=== PATIENT | male | born 1935 | race Caucasian/White ===

== ENCOUNTER 2016-04-05 08:23 | Emergency (ER) | payer MEDICARE, BC ==
[2016-04-05] MEDS ORDERED: IPRATROPIUM/ALBUTEROL (0.5MG/3MG) NEB INH ONE (08:43)
--- NOTE | 2016-04-05 08:46 | Emergency Department Record ---
History of Present Illness - General Chief Complaint: Cough Stated Complaint: COUGHING Time Seen by Provider: 04/05/16 08:43 Source: Patient Mode of Arrival: Ambulatory Limitations: No limitations - History of Present Illness Initial Comments: 81 yo male presents to ED with a CC of intermittent cough symptoms for the past several months intermittently. Patient denies fevers, chills, or weakness symptoms, but reports a persistent return of his cough symptoms following antibiotic treatment. MD Complaint: Cough Onset/Timin -: Month(s) Severity: Moderate Consistency: Intermittent Improves With: Other (antibiotics) Worsens With: Nothing Associated Symptoms: Cough Treatments Prior to Arrival: Antibiotics - Related Data Home Medications Medication Instructions Recorded Confirmed Last Taken Amlodipine Besylate [Norvasc] 10 mg PO DAILY 02/20/14 04/05/16 03/16/15 Omeprazole 20 mg PO DAILY 02/20/14 04/05/16 03/16/15 Potassium Chloride [Klor-Con M10] 10 meq PO DAILY 02/20/14 04/05/16 03/16/15 Quinapril/Hydrochlorothiazide 1 tab PO DAILY 02/20/14 04/05/16 03/16/15 [Quinapril-Hctz 20-12.5 mg Tab] Previous Rx's Medication Instructions Recorded Loperamide HCl [Immodium] 2 mg PO ASDIR PRN #30 capsule 03/17/15 Doxycycline Hyclate [Doxycycline] 100 mg PO BID #28 cap 04/05/16 Prednisone [Prednisone 20Mg] 20 mg PO BID #14 tab 04/05/16 Allergies Allergy/AdvReac Type Severity Reaction Status Date / Time No Known Drug Allergies Allergy Verified 03/16/15 13:58 Travel Screening - Travel/Exposure Within Last 30 Days Have you traveled within the last 30 days?: No Review of Systems Constitutional: Denies: Chills, Fever, Malaise, Night sweats Eyes: Denies: Eye discharge, Eye pain ENT: Denies: Congestion, Ear pain, Epistaxis Respiratory: Reports: Cough. Denies: Dyspnea, Wheezes Cardiovascular: Denies: Chest pain, Dyspnea on exertion Endocrine: Denies: Fatigue, Heat or cold intolerance Gastrointestinal: Denies: Abdominal pain, Nausea, Vomiting Genitourinary: Denies: Hematuria, Incontinence, Retention Musculoskeletal: Denies: Arthralgia, Back pain, Gout, Joint swelling Skin: Denies: Bruising, Change in color Neurological: Denies: Abnormal gait, Confusion, Headache, Seizure Psychiatric: Denies: Anxiety Hematological/Lymphatic: Denies: Anemia, Blood Clots Past Medical History - SOCIAL HISTORY Smoking Status: Former smoker Alcohol Use: None Drug Use: None - RESPIRATORY Hx Respiratory Disorders: Yes Hx Bronchitis: Yes (yrs ago) - CARDIOVASCULAR Hx Cardio Disorders: Yes Hx Hypertension: Yes Comment:: "bad back" - NEURO Hx Neuro Disorders: No - GI Hx GI Disorders: Yes Hx Reflux: Yes Hx Ulcer: Yes (1963) - Hx Genitourinary Disorders: Yes Hx Prostate Problems: Yes (cancer 2002) - ENDOCRINE Hx Endocrine Disorders: No Hx Diabetes: No Hx Thyroid Disease: No - MUSCULOSKELETAL Hx Musculoskeletal Disorders: Yes Hx Back Injury: Yes (fell in 2010) Comment:: lumbar deteriation- loss of 4" - PSYCH Hx Psych Problems: No - HEMATOLOGY/ONCOLOGY Hx Hematology/Oncology Disorders: Yes Hx Cancer: Yes Hx Chemotherapy: No Hx Radiation Therapy: Yes Hx Blood Transfusions: Yes Hx Blood Transfusion Reaction: No Comment:: radiation seeds 2002 Family Medical History Any Significant Family History?: Yes Hx Anxiety: Brother/Sister *Anxiety Comment: sister Hx Diabetes: Brother/Sister *Diabetes Comment: sister Physical Exam - General General Appearance: Alert, Oriented x3, Cooperative, No acute distress Limitations: No limitations - Head Head exam: Atraumatic, Normocephalic, Normal inspection Head exam detail: negative: Abrasion, Contusion, Almaguer's sign, General tenderness, Hematoma, Laceration - Eye Eye exam: Normal appearance. negative: Conjunctival injection, Periorbital swelling, Periorbital tenderness, Scleral icterus - ENT Ear exam: negative: Auricular hematoma, Auricular trauma Nasal Exam: negative: Active bleeding, Discharge, Dried blood, Foreign body Mouth exam: negative: Drooling, Laceration, Muffled voice, Tongue elevation - Neck Neck exam: Normal inspection. negative: Meningismus, Tenderness - Respiratory Respiratory exam: Normal lung sounds bilaterally. negative: Rales, Respiratory distress, Rhonchi, Stridor - Cardiovascular Cardiovascular Exam: Regular rate, Normal rhythm, Normal heart sounds - GI/Abdominal GI/Abdominal exam: Soft. negative: Rebound, Rigid, Tenderness - Rectal Rectal exam: Deferred - exam: Deferred - Extremities Extremities exam: Normal inspection. negative: Calf tenderness, Pedal edema, Tenderness - Back Back exam: Denies: CVA tenderness (R), CVA tenderness (L) - Neurological Neurological exam: Alert, Normal gait, Oriented X3 - Psychiatric Psychiatric exam: Normal affect, Normal mood - Skin Skin exam: Normal color. negative: Abrasion Type of lesion: negative: abrasion Course Vital Signs 04/05/16 08:25 Temperature 97.4 F L Pulse Rate 94 H Respiratory 20 Rate Blood Pressure 138/90 Pulse Ox 93 L - Reevaluation(s) Reevaluation #1: 04/05/16 09:29 CXR: Chronic changes, nothing acute. Patient was updated on his radiology results, reports that the duoneb did not significantly improved his symptoms. Patient appears stable for discharge on Doxycycline and prednisone for his symptoms and follow-up with Dr. Galarza in 5-7 days. Disposition Disposition: Discharge Clinical Impression: Bronchitis Disposition: Home, Self-Care Condition: (2) Stable Instructions: Acute Bronchitis (ED) Additional Instructions: Return to ED if your symptoms worsen or if you have any concerns. Follow-up with Dr. Galarza in 5-7 days as directed. Doxycycline and Prednisone as directed. Prescriptions: Doxycycline Hyclate [Doxycycline] 100 mg PO BID #28 cap Prednisone [Prednisone 20Mg] 20 mg PO BID #14 tab Forms: Patient Portal Access Time of Disposition: 09:32
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
== END 2016-04-05 10:07 | disposition home or self-care (01) ==
LOC: ER 08:23
DX: J20.9 Acute bronchitis, unspecified (principal); Z87.891 Personal history of nicotine dependence
CPT/HCPCS: 71020; 94640; 99283

== ENCOUNTER 2016-04-27 10:23 | Emergency (ER) | payer MEDICARE, BC ==
--- NOTE | 2016-04-27 10:44 | Emergency Department Record ---
History of Present Illness - General Chief complaint: Head Injury Stated complaint: HEAD INJURY 1 WEEK AGO/WEAKNESS Time Seen by Provider: 04/27/16 10:38 Source: Patient Mode of Arrival: Wheelchair Limitations: No limitations - History of Present Illness Initial comments: pt fell hitting head 10 days ago. since then he has not felt right. he has a headache which he never gets. he thought he was going to vomit his breakfast. he feels dizzy and off balance. he denies other injury. Complaint: Head injury, Fall Onset/Timin -: Days(s) Location: Frontal Loss of Consciousness: No Place: Home Radiation: None Consistency: Intermittent Provoking factors: None known Other Injuries: None Associated Symptoms: Weakness - Related Data Home Medications Medication Instructions Recorded Confirmed Last Taken Amlodipine Besylate [Norvasc] 10 mg PO DAILY 02/20/14 04/27/16 04/27/16 Omeprazole 20 mg PO DAILY 02/20/14 04/27/16 04/27/16 Potassium Chloride [Klor-Con M10] 10 meq PO DAILY 02/20/14 04/27/16 04/27/16 Quinapril/Hydrochlorothiazide 1 tab PO DAILY 02/20/14 04/27/16 04/27/16 [Quinapril-Hctz 20-12.5 mg Tab] Previous Rx's Medication Instructions Recorded Loperamide HCl [Immodium] 2 mg PO ASDIR PRN #30 capsule 03/17/15 Allergies/Adverse reactions: Allergies Allergy/AdvReac Type Severity Reaction Status Date / Time No Known Drug Allergies Allergy Verified 03/16/15 13:58 Travel Screening - Travel/Exposure Within Last 30 Days Have you traveled within the last 30 days?: No - Travel/Exposure Within Last Year Have you traveled outside the [place] in the last year?: No - Additonal Travel Details Have you been exposed to anyone with a communicable illness?: No Review of Systems Reviewed: No additional complaints except as noted below Constitutional: Reports: As per HPI. Denies: Chills, Fever, Malaise, Night sweats, Weakness, Weight change Eyes: Reports: As per HPI. Denies: Eye discharge, Eye pain, Photophobia, Vision change ENT: Reports: As per HPI. Denies: Congestion, Dental pain, Ear pain, Epistaxis , Hearing loss, Throat pain Respiratory: Reports: As per HPI. Denies: Cough, Dyspnea, Hemoptysis, Stridor, Wheezes Cardiovascular: Reports: As per HPI. Denies: Arrhythmia, Chest pain, Dyspnea on exertion, Edema, Murmurs, Orthopnea, Palpitations, Paroxysmal nocturnal dyspnea, Rheumatic Fever, Syncope Endocrine: Reports: As per HPI. Denies: Fatigue, Heat or cold intolerance, Polydipsia, Polyuria Gastrointestinal: Reports: As per HPI. Denies: Abdominal pain, Constipation, Diarrhea, Hematemesis, Hematochezia, Melena, Nausea, Vomiting Genitourinary: Reports: As per HPI. Denies: Dysuria, Frequency, Hematuria, Incontinence, Retention, Testicular pain, Testicular mass, Urgency Musculoskeletal: Reports: As per HPI. Denies: Arthralgia, Back pain, Gout, Joint swelling, Myalgia, Neck pain Skin: Reports: As per HPI. Denies: Bruising, Change in color, Change in hair/ nails, Lesions, Pruritus, Rash Neurological: Reports: As per HPI. Denies: Abnormal gait, Confusion, Headache, Numbness, Paresthesias, Seizure, Tingling, Tremors, Vertigo, Weakness Psychiatric: Reports: As per HPI. Denies: Anxiety, Auditory hallucinations, Depression, Homicidal thoughts, Suicidal thoughts, Visual hallucinations Hematological/Lymphatic: Reports: As per HPI. Denies: Anemia, Blood Clots, Easy bleeding, Easy bruising, Swollen glands Past Medical History - SOCIAL HISTORY Smoking Status: Former smoker Alcohol Use: Heavy Drug Use: None - RESPIRATORY Hx Respiratory Disorders: Yes Hx Bronchitis: Yes (yrs ago) - CARDIOVASCULAR Hx Cardio Disorders: Yes Hx Hypertension: Yes Comment:: "bad back" - NEURO Hx Neuro Disorders: No - GI Hx GI Disorders: Yes Hx Reflux: Yes Hx Ulcer: Yes (1963) - Hx Genitourinary Disorders: Yes Hx Prostate Problems: Yes (cancer 2002) - ENDOCRINE Hx Endocrine Disorders: No Hx Diabetes: No Hx Thyroid Disease: No - MUSCULOSKELETAL Hx Musculoskeletal Disorders: Yes Hx Back Injury: Yes (fell in 2010) Comment:: lumbar deteriation- loss of 4" - PSYCH Hx Psych Problems: No - HEMATOLOGY/ONCOLOGY Hx Hematology/Oncology Disorders: Yes Hx Cancer: Yes Hx Chemotherapy: No Hx Radiation Therapy: Yes Hx Blood Transfusions: Yes Hx Blood Transfusion Reaction: No Comment:: radiation seeds 2002 Family Medical History Any Significant Family History?: No Hx Anxiety: Brother/Sister *Anxiety Comment: sister Hx Diabetes: Brother/Sister *Diabetes Comment: sister Physical Exam - General General Appearance: Alert, Oriented x3, Cooperative, Mild distress - Head Head exam: Normal inspection Image of Face/Head: 1 - ecchymosis, tenderness - Eye Eye exam: Normal appearance, PERRL, EOMI Pupils: Normal accommodation - ENT ENT exam: Normal exam, Mucous membranes moist, Normal external ear exam, Normal orophraynx, TM's normal bilaterally Ear exam: Normal external inspection. negative: External canal tenderness Nasal Exam: Normal inspection. negative: Discharge, Sinus tenderness Mouth exam: Normal external inspection, Tongue normal Teeth exam: Normal inspection. negative: Dental caries Throat exam: Normal inspection. negative: Tonsillar erythema, Tonsillar exudate - Neck Neck exam: Normal inspection, Full ROM. negative: Tenderness - Respiratory Respiratory exam: Normal lung sounds bilaterally. negative: Respiratory distress - Cardiovascular Cardiovascular Exam: Regular rate, Normal rhythm, Normal heart sounds - GI/Abdominal GI/Abdominal exam: Soft, Normal bowel sounds. negative: Tenderness - Rectal Rectal exam: Deferred - exam: Deferred - Extremities Extremities exam: Normal inspection, Full ROM, Normal capillary refill. negative: Tenderness - Back Back exam: Reports: Normal inspection, Full ROM. Denies: Muscle spasm, Rash noted, Tenderness - Neurological Neurological exam: Alert, CN II-XII intact, Normal gait, Oriented X3 - Psychiatric Psychiatric exam: Normal affect, Normal mood - Skin Skin exam: Dry, Intact, Normal color, Warm Course Vital Signs 04/27/16 10:37 Temperature 97.5 F L Pulse Rate [ 100 H Pulse Ox Probe] Respiratory 16 Rate Blood Pressure 141/90 [Left Arm] Pulse Ox 99 - Reevaluation(s) Reevaluation #1: 04/27/16 13:27 pt feels much better Medical Decision Making - Lab Data Result diagrams: 04/27/16 10:59 04/27/16 10:59 Disposition Disposition: Discharge Clinical Impression: Hypokalemia, Weakness Head injury due to trauma Qualifiers: Encounter type: initial encounter Qualified Code(s): S09.90XA - Unspecified injury of head, initial encounter Disposition: Home, Self-Care Condition: (1) Good Instructions: Minor Head Injury (ED), Hypokalemia (ED) Additional Instructions: follow up with family doctor. return sooner if worse. Forms: Patient Portal Access
[2016-04-27 11:04] LABS: BASO % 0.2 % (0-6); EOS % 1.4 % (0-6); GRAN % 70.3 % (47-80); HEMATOCRIT 38.8 % (42.0-52.0); HEMOGLOBIN 13.5 gm/dl (14.0-18.0); LYMPH % 18.2 % (16-45); MEAN CELL VOLUME 92.4 fl (81-97); MEAN CORPUSCULAR HEMOGLOBIN 32.1 pg (27-33); MEAN CORPUSCULAR HGB CONC 34.8 g/dl (32-36); MEAN PLATELET VOLUME 9.1 fl (7.4-10.4); MONO % 9.9 % (0-9); PLATELET COUNT 228 K/uL (130-400); RED CELL DISTRIBUTION WIDTH 12.6 % (11.5-14.5); WHITE BLOOD COUNT W/O DIFF 4.2 K/uL (4.2-12.2)
[2016-04-27 11:15] LABS: ANION GAP 10.8 (7-16); BLOOD UREA NITROGEN 9 mg/dL (9-20); CARBON DIOXIDE 33.2 mmol/L (22-30); CREATININE 0.7 mg/dL (0.66-1.25); EST GLOMERULAR FILTRATION RATE > 60 ml/min; GLUCOSE,RANDOM 159 mg/dL (70-110)
[2016-04-27] MEDS ORDERED: POTASSIUM CHLORIDE 20 MEQ TABLET PO ONE (11:31)
[2016-04-27 13:16] LABS: URINE APPEARANCE CLEAR; URINE BILIRUBIN NEGATIVE (NEGATIVE); URINE BLOOD NEGATIVE (NEGATIVE); URINE COLOR YELLOW; URINE GLUCOSE (UA) NEGATIVE (NEGATIVE); URINE KETONE NEGATIVE (NEGATIVE); URINE LEUKOCYTE ESTERASE NEGATIVE (NEGATIVE); URINE NITRITE NEGATIVE (NEGATIVE); URINE PROTEIN NEGATIVE (NEGATIVE); URINE UROBILINOGEN 0.2 E.U./dL (0.20 - 1.00)
--- NOTE | 2016-05-01 13:36 | CT SCAN REPORT ---
DATE: 04/27/2016. EXAM: CT OF THE BRAIN WITHOUT CONTRAST. HISTORY: Fall. TECHNIQUE: CT of the brain without contrast. COMPARISON: Prior CT of the brain dated 02/20/2014. FINDINGS: The globes are intact. Mucosal thickening of the right maxillary sinus. No displaced or depressed skull fracture. No intra- or extra-axial hemorrhage. CT limited for the evaluation of acute infarct. No CT evidence for large or territorial acute infarct. No mass or midline shift. Age- appropriate atrophy with small-vessel ischemic change. IMPRESSION: ATROPHY. SMALL-VESSEL ISCHEMIC CHANGE. JOB NUMBER: [id number] [facility]
== END 2016-04-27 13:41 | disposition home or self-care (01) ==
LOC: ER 10:23
DX: S00.83XA Contusion of other part of head, initial encounter (principal); E87.6 Hypokalemia; R51 Headache; R42 Dizziness and giddiness; R53.1 Weakness; I10 Essential (primary) hypertension; Z87.891 Personal history of nicotine dependence; W19.XXXA Unspecified fall, initial encounter
CPT/HCPCS: 70450; 80048; 81003; 85025; 99284

== ENCOUNTER 2016-05-27 10:15 | Inpatient (IN) | payer MEDICARE, BC ==
[2016-05-27] MEDS ORDERED: ACETAMINOPHEN 325 MG TAB PO PRN (13:48)
[2016-05-27] MEDS ORDERED: LOPERAMIDE 2 MG CAPSULE PO PRN (13:49)
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
[2016-05-28] MEDS: PANTOPRAZOLE SODIUM 40 MG TABLET PO SCH (07:13)
[2016-05-28] MEDS ORDERED: LISINOPRIL 20 MG TABLET PO SCH (10:00)
[2016-05-28] MEDS: AMLODIPINE BESYLATE 5MG TAB PO SCH (10:00)
--- NOTE | 2016-05-28 11:27 | Occupational Therapy Tx Note ---
Occupational Therapy Tx Note - Treatment Note Tolerated: Good Total Time Spent With Patient: 30 (ADL training) Occupational Therapy Treatment Note: Detail (S: Pt reports his BP was low earlier but now it is better. He is ready to get up. O: Supine to sit Indly. Amb to bathroom with 2 wheeled walker and SBA. Pt completed shaving, washing face and combing hair in static standing with SBA. Pt amb back to EOB with walker and SBA. Pt doffed gown with assist to untie, PJ pants Indly and donned t-shirt and clean PJ bottoms Indly with some difficulty pulling pants over ankle brace. Sit to supine Indly. A: Pt fatigued after treatment, SBA for ambulation, Ind with light self cares and dressing.) Occupational Therapy Problem List: Detail (1. Decreased Ind with dressing 2. Decreased Ind with showering 3. Decreased endurance needed for safe and Ind return home) Occupational Therapy Goals: 1. Pt will be Ind with total body dressing 2. Pt will be Ind with showering in sitting or standing 3. Pt will demonstrate functional endurance needed for safe and Ind self care activities. Prognosis: Good Occupational Therapy Plan: OT 2-4 days per week to address self care activities , functional mobility and endurance needed for safe and Ind return home.
--- NOTE | 2016-05-28 13:18 | History & Physical ---
History of Present Illness - Date Date of Service for History & Physical: 05/28/16 - History of Present Illness Admitting Diagnosis: weakness secondary to freq falls. deconditioning. ruptured achilles tendon right ankle. hyponatremia resolving by stopping HCTZ History of Present Illness: Patient to weak to go home and went into the swing bed program for deconditioning. Ruptured right achilles tendon with a clam boot and following with Dr. Garcia. General - Cognitive Patterns Orientation: Oriented x3 - Communication Preferred Language?: Hungarian Cloth Hand Required: No Level of Education: High School Preferred Method of Learning: Seeing, Doing Comprehension Ability: No Impairment Able to Read: Yes Able to Write: Yes Select best description of speech pattern: Clear Speech Ability to express ideas and wants: Usually Understood Understanding verbal content: Understands - Psychosocial Well-Being Usual Living Arrangement: Alone - Physical Functioning Activity Level: Up as tolerated Turning: Self ad martell Assistive Devices: Walker Ambulation Ability: Independent - Dental Status Broken or loosely fitting full or partial dentures: No No natural teeth or tooth fragment(s) (edentulous): Yes Abnormal mouth tissue (ulcers, masses, oral lesions, etc.): No Obvious or likely cavity or broken natural teeth: No Inflamed or bleeding gums or loose natural teeth: No Mouth/facial pain, discomfort or difficulty chewing: No - Nutrition Screening Poor oral intake > 1 week: No Unplanned weight loss in specified time frame: No Nutrition Support via tube feedings or parenteral nutrition: No Pressure Ulcer: No Significantly underweight define as BMI <18.5 kg/m2: Yes Albumin <2.5mg/dL: No Persistent nausea/vomiting/diarrhea >3 days: No Difficulty chewing/swallowing/mouth sores: No Admitting Diagnosis: No Nutrition Risk Score: High Risk Review of Systems Reviewed: No additional complaints except as noted below Constitutional: Reports: As per HPI. Denies: Chills, Fever, Malaise, Night sweats, Weakness, Weight change Eyes: Reports: As per HPI. Denies: Eye discharge, Eye pain, Photophobia, Vision change ENT: Reports: As per HPI. Denies: Congestion, Dental pain, Ear pain, Epistaxis , Hearing loss, Throat pain Respiratory: Reports: As per HPI. Denies: Cough, Dyspnea, Hemoptysis, Stridor, Wheezes Cardiovascular: Reports: As per HPI. Denies: Arrhythmia, Chest pain, Dyspnea on exertion, Edema, Murmurs, Orthopnea, Palpitations, Paroxysmal nocturnal dyspnea, Rheumatic Fever, Syncope Endocrine: Reports: As per HPI. Denies: Fatigue, Heat or cold intolerance, Polydipsia, Polyuria Gastrointestinal: Reports: As per HPI. Denies: Abdominal pain, Constipation, Diarrhea, Hematemesis, Hematochezia, Melena, Nausea, Vomiting Genitourinary: Reports: As per HPI. Denies: Dysuria, Frequency, Hematuria, Incontinence, Retention, Testicular pain, Testicular mass, Urgency Musculoskeletal: Reports: As per HPI. Denies: Arthralgia, Back pain, Gout, Joint swelling, Myalgia, Neck pain Skin: Reports: As per HPI. Denies: Bruising, Change in color, Change in hair/ nails, Lesions, Pruritus, Rash Neurological: Reports: As per HPI. Denies: Abnormal gait, Confusion, Headache, Numbness, Paresthesias, Seizure, Tingling, Tremors, Vertigo, Weakness Psychiatric: Reports: As per HPI. Denies: Anxiety, Auditory hallucinations, Depression, Homicidal thoughts, Suicidal thoughts, Visual hallucinations Hematological/Lymphatic: Reports: As per HPI. Denies: Anemia, Blood Clots, Easy bleeding, Easy bruising, Swollen glands Past Medical History - SOCIAL HISTORY Smoking Status: Former smoker Alcohol Use: None - SURGICAL HISTORY Past Surgical History: plate in chest from a fall. intestinal. cataracts both eyes - RESPIRATORY Hx Respiratory Disorders: Yes Hx Bronchitis: Yes (yrs ago) - CARDIOVASCULAR Hx Cardio Disorders: Yes Hx Hypertension: Yes Comment:: "bad back" - NEURO Hx Neuro Disorders: No - GI Hx GI Disorders: Yes Hx Reflux: Yes Hx Ulcer: Yes (1963) - Hx Genitourinary Disorders: Yes Hx Prostate Problems: Yes (cancer 2002) - ENDOCRINE Hx Endocrine Disorders: No Hx Diabetes: No Hx Thyroid Disease: No - MUSCULOSKELETAL Hx Musculoskeletal Disorders: Yes Hx Back Injury: Yes (fell in 2010) Comment:: lumbar deteriation- loss of 4" - PSYCH Hx Psych Problems: No - HEMATOLOGY/ONCOLOGY Hx Hematology/Oncology Disorders: Yes Hx Cancer: Yes Hx Chemotherapy: No Hx Radiation Therapy: Yes Hx Blood Transfusions: Yes Hx Blood Transfusion Reaction: No Comment:: radiation seeds 2002 Family Medical History Any Significant Family History?: Yes Hx Anxiety: Brother/Sister *Anxiety Comment: sister Hx Diabetes: Brother/Sister *Diabetes Comment: sister H&P Meds/Allergies - Allergies Allergies: Allergies Allergy/AdvReac Type Severity Reaction Status Date / Time No Known Drug Allergies Allergy Verified 05/23/16 09:03 - Home Medications Home Medications Medication Instructions Recorded Confirmed Last Taken Amlodipine Besylate [Norvasc] 10 mg PO DAILY 02/20/14 05/27/16 04/27/16 Omeprazole 20 mg PO QAM 02/20/14 05/27/16 04/27/16 Calcium Carbonate/Vitamin D3 1 each PO DAILY 05/23/16 05/27/16 Unknown [Caltrate 600 Plus D3 Tablet] Cranberry 500 mg PO DAILY 05/23/16 05/27/16 Unknown Fexofenadine HCl [Camille Allergy] 180 mg PO DAILY 05/23/16 05/27/16 Unknown Garlic 2,000 mg PO DAILY 05/23/16 05/27/16 Unknown Magnesium Oxide [Magnesium] 400 mg PO DAILY 05/23/16 05/27/16 Unknown Multivit-Min/FA/Lycopen/Lutein 1 each PO DAILY 05/23/16 05/27/16 Unknown [Centrum Silver Men Tablet] Lisinopril 20 mg PO DAILY 05/27/16 05/27/16 Unknown Loperamide HCl [Immodium] 2 mg PO QID PRN 05/27/16 05/27/16 Unknown - Active Medications Active Medications: Current Medications Acetaminophen (Tylenol 325mg) 650 mg PO Q4H PRN PRN Reason: Pain - General Amlodipine Besylate (Norvasc) 10 mg PO DAILY [facility] Last Admin: 05/28/16 10:00 Dose: Not Given Lisinopril (Zestril) 20 mg PO DAILY [facility] Last Admin: 05/28/16 10:00 Dose: Not Given Loperamide HCl (Immodium) 2 mg PO QID PRN PRN Reason: DIARRHEA Pantoprazole Sodium (Protonix) 40 mg PO DAILYAC [facility] Last Admin: 05/28/16 07:13 Dose: 40 mg Physical Exam - Vital Signs Vital Signs: Vital Signs - Last 24 Hrs Temp Pulse Resp BP Pulse Ox 05/28/16 10:14 88 14 117/66 98 05/28/16 08:00 97.8 F 101 H 12 85/57 96 - General General Appearance: Alert, Oriented x3, Cooperative, No acute distress - Head Head exam: Normal inspection - Eye Eye exam: Normal appearance, PERRL Pupils: Normal accommodation - ENT ENT exam: Normal exam, Mucous membranes moist, Normal external ear exam, Normal orophraynx, TM's normal bilaterally Ear exam: Normal external inspection. negative: External canal tenderness Nasal Exam: Normal inspection. negative: Discharge, Sinus tenderness Mouth exam: Normal external inspection, Tongue normal Teeth exam: Normal inspection. negative: Dental caries Throat exam: Normal inspection. negative: Tonsillar erythema, Tonsillar exudate - Neck Neck exam: Normal inspection, Full ROM. negative: Tenderness - Respiratory Respiratory exam: Normal lung sounds bilaterally. negative: Respiratory distress - Cardiovascular Cardiovascular Exam: Regular rate, Normal rhythm, Normal heart sounds - GI/Abdominal GI/Abdominal exam: Soft, Normal bowel sounds. negative: Tenderness - Rectal Rectal exam: Deferred - exam: Deferred - Extremities Extremities exam: Normal inspection, Full ROM, Normal capillary refill, Other ( clam boot on the right leg). negative: Tenderness - Back Back exam: Reports: Normal inspection, Full ROM. Denies: Muscle spasm, Rash noted, Tenderness - Neurological Neurological exam: Alert, Normal gait, Oriented X3, Reflexes normal - Psychiatric Psychiatric exam: Normal affect, Normal mood - Skin Skin exam: Dry, Intact, Normal color, Warm Discharge Potential - Discharge Needs Community Services Used Prior to Admission: None Patient Discharge Plan Description: Return Home Community Services Needed at Discharge: None Plan - Swing Bed Certification Initial Certification Due: 05/27/16 14 Day Re-Cert Due: 06/10/16 44 Day Re-Cert Due: 07/10/16 74 Day Re-Cert Due: 08/09/16 - Detailed Diagnosis and Plan (1) Achilles rupture, right Current Visit: No Status: Acute Base Code: S86.011A - STRAIN OF RIGHT ACHILLES TENDON, INITIAL ENCOUNTER (2) Hyponatremia Current Visit: No Status: Acute Base Code: E87.1 - HYPO-OSMOLALITY AND HYPONATREMIA Comment: 03/19/14- suspect due to polydypsia, Now that above 131, will advise to not drink as much free water and likely have patient check labs in a week and follow up with PCP. Seizure precautions in place. (3) Muscular deconditioning Current Visit: Yes Status: Acute Base Code: R29.898 - OTH SYMPTOMS AND SIGNS INVOLVING THE MUSCULOSKELETAL SYSTEM
--- NOTE | 2016-05-28 14:25 | Physical Therapy Tx Note ---
Physical Therapy Tx Note - Treatment Note Tolerated: Good Total Time Spent With Patient: 25 Physical Therapy Tx Note: Detail (Pt. in bed upon arrival. "The only exercise I got this morning was shaving." "I want to get out of here." Pt. was reeducated in [id number] with his walker for safety precaution. Pt. then ambulated 150 feet with his front-wheeled walker with contact guard. Pt. also performed stair ascent/descent X 3. He performed without the walker, holding the rail with both hands, and minimum assist. Pt. had expressed concern he was not ready to do stairs and only has one step at home. He was easily persuaded to attempt to the stairs. Pt. was returned to room and rested for approximately three minutes in chair. He completed marches and long arc quads X 10 each and bilateral. Pt. stood in fww and performed single leg stance X 2, bilaterally, for approximately 15 seconds each. Pt. sat in bed and completed 4 isometric arm exercises (push and pull) with manual resistance from SPTA. Pt. was returned to bed with his call light, water, bedside table and walker within reach. Pt. tolerated treatment well. He expressed concern that he was "wobbly ", however, he performed all activities requested of him. Pt. will be seen tomorrow a.m.) Physical Therapy Problem List: Detail (1) R LE weakness 2) Decreased Balance ( Hisrory of falls) 3) Decreased ability to complete sustained physical activity) Physical Therapy Goals: 1) Independent ambulation with or without assistive device WBAT R LE on levels 250 feet plus . 2) The patient will demonstrate 4+ /5 strength in LE's to increase stability of gait. 3) Independent/Supervision with ambulation on 2 to 3 stairs. 4) The patient will tolerate 30 to 45 minutes of physical activity. 5) Independent with all transfers. Prognosis: Good Physical Therapy Plan: PT 1-2 times a day for LE strengthening and balance exercises, gait training,transfer training.
[2016-05-29] MEDS: PANTOPRAZOLE SODIUM 40 MG TABLET PO SCH (06:28)
--- NOTE | 2016-05-29 08:07 | Occupational Therapy Tx Note ---
Occupational Therapy Tx Note - Treatment Note Tolerated: Good Total Time Spent With Patient: 45 (ADL) Occupational Therapy Treatment Note: Detail (S: Pt awake and ready for therapy. O: Supine to sit Indly, amb to bathroom Indly with 2 wheeled walker. Doffed t-shirt, pants and underpants Indly in sitting. Doffed right ankle brace with min assist. Pt completed showering in sitting with hand held shower Indly. Dried self Indly. Donned t-shirt Indly, donned ankle brace with min assist, donned underpants, pants and right slipper Indly. Sit to stand with grab bar and walker and amb to sink Indly, completed combing hair and denture care Indly while standing at sink. Amb to chair with walker Indly. A: Ind with dressing, min assist needed for ankle brace, Ind with showering in sitting , pt fatigued after treatment) Occupational Therapy Problem List: Detail (1. Decreased Ind with dressing 2. Decreased Ind with showering 3. Decreased endurance needed for safe and Ind return home) Occupational Therapy Goals: 1. Pt will be Ind with total body dressing 2. Pt will be Ind with showering in sitting or standing 3. Pt will demonstrate functional endurance needed for safe and Ind self care activities. Prognosis: Good Occupational Therapy Plan: OT 2-4 days per week to address self care activities , functional mobility and endurance needed for safe and Ind return home.
[2016-05-29 08:39] LABS: ANION GAP 15.2 (7-16); BLOOD UREA NITROGEN 11 mg/dL (9-20); CARBON DIOXIDE 26.8 mmol/L (22-30); CREATININE 0.7 mg/dL (0.66-1.25); EST GLOMERULAR FILTRATION RATE > 60 ml/min; GLUCOSE,RANDOM 117 mg/dL (70-110)
[2016-05-29] MEDS: AMLODIPINE BESYLATE 5MG TAB PO SCH (10:02)
--- NOTE | 2016-05-29 13:44 | Physical Therapy Tx Note ---
Physical Therapy Tx Note - Treatment Note Tolerated: Good Total Time Spent With Patient: 30 Physical Therapy Tx Note: Detail (Pt. in bed upon arrival. Pt. pleasant and responsive and eager to walk. He requested the chance to practice the stairs again. Pt. ambulated 275 feet with front wheeled walker and contact guard. Pt. completed three stairs without his walker and utilizing both hands on the railing and contact guard. Discussed with pt. the need for home health to assist with some ADL's and possibly meals or other activities. Also discussed with pt. the importance of not driving until he is cleared by the physician. Pt. was returned to bed with call light, water, and bedside table. Nursing was apprised of pt's concern about medications. Pt. tolerated ambulation well. He completed the stairs fairly easily, however, became very light headed almost immediately. Pt. believed his reaction was due to his medications change. Continue to utilize strengthening exercises as patient tolerates.) Physical Therapy Problem List: Detail (1) R LE weakness 2) Decreased Balance ( Hisrory of falls) 3) Decreased ability to complete sustained physical activity) Physical Therapy Goals: 1) Independent ambulation with or without assistive device WBAT R LE on levels 250 feet plus . 2) The patient will demonstrate 4+ /5 strength in LE's to increase stability of gait. 3) Independent/Supervision with ambulation on 2 to 3 stairs. 4) The patient will tolerate 30 to 45 minutes of physical activity. 5) Independent with all transfers. Prognosis: Good Physical Therapy Plan: PT 1-2 times a day for LE strengthening and balance exercises, gait training,transfer training.
[2016-05-29] MEDS ORDERED: DOCUSATE SODIUM 100 MG CAPSULE PO PRN (19:57)
[2016-05-30] MEDS: PANTOPRAZOLE SODIUM 40 MG TABLET PO SCH (06:17)
[2016-05-30] MEDS: AMLODIPINE BESYLATE 5MG TAB PO SCH (09:13)
--- NOTE | 2016-05-30 11:12 | Physical Therapy Tx Note ---
Physical Therapy Tx Note - Treatment Note Tolerated: Good Total Time Spent With Patient: 25 Physical Therapy Tx Note: Detail (Pt. in bed upon arrival. He was talkative and excited to walk. He did not report any pain. Pt. volunteered to do stairs again. His form, posture and comfort was good, except he had to be reminded to single step with "good" foot ascending first. Pt. ambulated approximately 300 feet with fww and contact guard. Pt. also required verbal cues to step forward into the walker and not push the walker too far in front of him to avoid falling. Pt. returned to room and chair, with call light, table, and drink. Pt. will be seen this afternoon and Pt. will again be reminded to utilize fww appropriately. Plan to give pt. some simple strengthening exercises.) Physical Therapy Problem List: Detail (1) R LE weakness 2) Decreased Balance ( Hisrory of falls) 3) Decreased ability to complete sustained physical activity) Physical Therapy Goals: 1) Independent ambulation with or without assistive device WBAT R LE on levels 250 feet plus . 2) The patient will demonstrate 4+ /5 strength in LE's to increase stability of gait. 3) Independent/Supervision with ambulation on 2 to 3 stairs. 4) The patient will tolerate 30 to 45 minutes of physical activity. 5) Independent with all transfers. Prognosis: Good Physical Therapy Plan: PT 1-2 times a day for LE strengthening and balance exercises, gait training,transfer training.
--- NOTE | 2016-05-30 13:55 | Physical Therapy Tx Note ---
Physical Therapy Tx Note - Treatment Note Tolerated: Good (25) Total Time Spent With Patient: 35 Physical Therapy Tx Note: Detail (Pt. in bed upon arrival. He was pleasant and eager to walk. Pt. reported he was experiencing no pain in his feet. Pt. completed marches, and short arc quads x five. He also completed manually resisted knee flexion, hip flexion, hip abduction, hip adduction, bicep curls and tricep pull backs X ten. Pt. also completed manual/isometric chest push X 2 for 15 seconds. Pt. then ambulated 150 feet with his fww and contact guard. Pt. returned to his bed with bedside table, call light and drink. Pt. tolerated treatment well. He indicated minor pain with pressure at back of both ankles. His leg strength was less than his arm strength. Plan is to continue strengthening and endurance exercises.) Physical Therapy Problem List: Detail (1) R LE weakness 2) Decreased Balance ( Hisrory of falls) 3) Decreased ability to complete sustained physical activity) Physical Therapy Goals: 1) Independent ambulation with or without assistive device WBAT R LE on levels 250 feet plus . 2) The patient will demonstrate 4+ /5 strength in LE's to increase stability of gait. 3) Independent/Supervision with ambulation on 2 to 3 stairs. 4) The patient will tolerate 30 to 45 minutes of physical activity. 5) Independent with all transfers. Prognosis: Good Physical Therapy Plan: PT 1-2 times a day for LE strengthening and balance exercises, gait training,transfer training.
[2016-05-31] MEDS: PANTOPRAZOLE SODIUM 40 MG TABLET PO SCH (06:00)
[2016-05-31] MEDS: AMLODIPINE BESYLATE 5MG TAB PO SCH (10:00)
--- NOTE | 2016-05-31 10:11 | Occupational Therapy Tx Note ---
Occupational Therapy Tx Note - Treatment Note Tolerated: Good Total Time Spent With Patient: 45 (ADL) Occupational Therapy Treatment Note: Detail (S: Pt ready for therapy O: Supine to sit Indly and amb to shower with 2 wheeled walker Indly. Doffed pants , shirt, underpants Indly. Wrapped right lower leg/brace with bag. Pt completed showering in standing Indly using grab bars. Pt dried self Indly. Donned underpants Indly. Amb to sink and completed shaving Indly. Amb to chair with walker and donned pants and t-shirt Indly. A: Pt is Ind with total body dressing, Ind with showering in standing, Ind with ambulation/mobility needed for self cares.) Occupational Therapy Problem List: Detail (1. Decreased Ind with dressing 2. Decreased Ind with showering 3. Decreased endurance needed for safe and Ind return home) Occupational Therapy Goals: 1. Pt will be Ind with total body dressing 2. Pt will be Ind with showering in sitting or standing 3. Pt will demonstrate functional endurance needed for safe and Ind self care activities. Prognosis: Good Occupational Therapy Plan: OT 2-4 days per week to address self care activities , functional mobility and endurance needed for safe and Ind return home.
--- NOTE | 2016-05-31 14:02 | Physical Therapy Tx Note ---
Physical Therapy Tx Note - Treatment Note Tolerated: Good Total Time Spent With Patient: 30 Physical Therapy Tx Note: Detail (Pt. in bed upon arrival. He was, as usual, pleasant and eager to walk. Pt. reported no pain, except for irritation on his R heel. Pt. was instructed to practice doffing/donning his walking boot. Opening the velcro was challenging due to lack of strength in his hands and leaning over. He successfully completed the task of donning/doffing the boot and changing his stocking net in approximately 18 minutes with some fatigue. Pt. was administered a Tinetti Balance Test score 22/28 which is in the moderate risk for fall category. He then ambulated approximately 130 feet to the nursing station and back. Pt. was also reminded of the importance of safe use of his walker and of not driving until he is released by the doctor. 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 Pt. stated "I'm not going to mess with it." When queried he indicated he meant he was not going to drive. Pt. also indicated he was planning on signing up for "Meals on Wheels" and desired to have some home help. Pt. tolerated treatment well. He was returned to his bed, bedside table , call light and speaking with the social science teacher.) Physical Therapy Problem List: Detail (1) R LE weakness 2) Decreased Balance ( Hisrory of falls) 3) Decreased ability to complete sustained physical activity) Physical Therapy Goals: 1) Independent ambulation with or without assistive device WBAT R LE on levels 250 feet plus . 2) The patient will demonstrate 4+ /5 strength in LE's to increase stability of gait. 3) Independent/Supervision with ambulation on 2 to 3 stairs. 4) The patient will tolerate 30 to 45 minutes of physical activity. 5) Independent with all transfers. Prognosis: Good Physical Therapy Plan: PT 1-2 times a day for LE strengthening and balance exercises, gait training,transfer training.
[2016-06-01] MEDS: PANTOPRAZOLE SODIUM 40 MG TABLET PO SCH (07:02)
[2016-06-01] MEDS: AMLODIPINE BESYLATE 5MG TAB PO SCH (10:58)
[2016-06-02] MEDS: PANTOPRAZOLE SODIUM 40 MG TABLET PO SCH (06:26)
[2016-06-02] MEDS: AMLODIPINE BESYLATE 5MG TAB PO SCH (09:39)
[2016-06-03] MEDS: PANTOPRAZOLE SODIUM 40 MG TABLET PO SCH (06:06)
--- NOTE | 2016-06-03 08:13 | Discharge Summary ---
Providers Discharge Summary Date: 06/03/16 Date of admission: 05/27/16 13:38 Expected Date of Discharge: 06/03/16 Attending physician: Fredy Talavera Primary care physician: Ramiro Galarza Physical Exam - Vital Signs Vital Signs: Vital Signs - Last 24 Hrs Temp Pulse Resp BP Pulse Ox 06/02/16 20:00 97.9 F 87 18 127/73 98 - General General Appearance: Alert, Oriented x3, Cooperative, No acute distress - Head Head exam: Normal inspection - Eye Eye exam: Normal appearance, PERRL Pupils: Normal accommodation - ENT ENT exam: Normal exam, Mucous membranes moist, Normal external ear exam, Normal orophraynx, TM's normal bilaterally Ear exam: Normal external inspection. negative: External canal tenderness Nasal Exam: Normal inspection. negative: Discharge, Sinus tenderness Mouth exam: Normal external inspection, Tongue normal Teeth exam: Normal inspection. negative: Dental caries Throat exam: Normal inspection. negative: Tonsillar erythema, Tonsillar exudate - Neck Neck exam: Normal inspection, Full ROM. negative: Tenderness - Respiratory Respiratory exam: Normal lung sounds bilaterally. negative: Respiratory distress - Cardiovascular Cardiovascular Exam: Regular rate, Normal rhythm, Normal heart sounds - GI/Abdominal GI/Abdominal exam: Soft, Normal bowel sounds. negative: Tenderness - Rectal Rectal exam: Deferred - exam: Deferred - Extremities Extremities exam: Normal inspection, Full ROM, Normal capillary refill, Other ( clam boot on the right leg). negative: Tenderness - Back Back exam: Reports: Normal inspection, Full ROM. Denies: Muscle spasm, Rash noted, Tenderness - Neurological Neurological exam: Alert, Normal gait, Oriented X3, Reflexes normal - Psychiatric Psychiatric exam: Normal affect, Normal mood - Skin Skin exam: Dry, Intact, Normal color, Warm Hospitalization - Hospitalization Admission Diagnosis: weakness secondary to freq falls. deconditioning. ruptured achilles tendon right ankle. hyponatremia resolving by stopping HCTZ - Problem List (1) Achilles rupture, right Current Visit: No Status: Acute Base Code: S86.011A - STRAIN OF RIGHT ACHILLES TENDON, INITIAL ENCOUNTER (2) Hyponatremia Current Visit: No Status: Acute Base Code: E87.1 - HYPO-OSMOLALITY AND HYPONATREMIA Comment: 03/19/14- suspect due to polydypsia, Now that above 131, will advise to not drink as much free water and likely have patient check labs in a week and follow up with PCP. Seizure precautions in place. (3) Muscular deconditioning Current Visit: Yes Status: Acute Base Code: R29.898 - [facility] SYMPTOMS AND SIGNS INVOLVING THE MUSCULOSKELETAL SYSTEM - Hospitalization Course Disposition: Home, Self-Care Reason For Discharge/Transfer: Medical Stability Hospital Course: lobo gradually improved and his hypertension meds reduced and HCTZ stopped because it was causing electrolyte problems. Abnormal Labs: Abnormal Lab Results 05/29/16 Range/Units 08:03 Sodium 130 L (136-145) mmol/L Chloride 88 L (98-107) mmol/L Random Glucose 117 H (70-110) mg/dL Condition at Discharge: (1) Good Discharge Diagnosis: right achilles tendon rupture. hyponatremia. hypertension. GERD Discharge Medications - Discharge Medications Prescriptions: Amlodipine Besylate [Norvasc] 5 mg PO DAILY #30 tab Home Medications: Ambulatory Orders Omeprazole 20 mg PO QAM 02/20/14 [Last Taken 04/27/16] Calcium Carbonate/Vitamin D3 [Caltrate 600 Plus D3 Tablet] 1 each PO DAILY 05/23 [Last Taken Unknown] Cranberry 500 mg PO DAILY 05/23/16 [Last Taken Unknown] Fexofenadine HCl [Camille Allergy] 180 mg PO DAILY 05/23/16 [Last Taken Unknown] Garlic 2,000 mg PO DAILY 05/23/16 [Last Taken Unknown] Magnesium Oxide [Magnesium] 400 mg PO DAILY 05/23/16 [Last Taken Unknown] Multivit-Min/FA/Lycopen/Lutein [Centrum Silver Men Tablet] 1 each PO DAILY 05/23 [Last Taken Unknown] Amlodipine Besylate [Norvasc] 5 mg PO DAILY #30 tab 06/03/16 [Last Taken Unknown ] Discharge Plan - Discharge Instructions Activity at Discharge: Increase Activity as Tolerated Diet at Discharge: Regular Diet Instructions: Achilles Tendon Rupture (GEN), Ankle Exercises (GEN), Tendon Rupture, [employer] (GEN) Additional Instructions: 2 Activity: 2 Diet: 2 Consults: [] 2 Follow Up: [with Dr. Garcia on June 13 at 0800] 2 Dressing/Wound Care: (Type) (Change) 2 Additional: [] wear boot for [address] Garcia as scheduled in one to two weeks follow up with Dr. Galarza in one week
[2016-06-03] MEDS: AMLODIPINE BESYLATE 5MG TAB PO SCH (10:36)
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
== END 2016-06-03 13:15 | disposition home health service (06) | DRG 556 ==
LOC: MEDSURG 13:38
PROVIDERS: ADMIT Emergency Medicine; ATTEND Emergency Medicine
DX: R29.898 Other symptoms and signs involving the musculoskeletal system (principal); E87.1 Hypo-osmolality and hyponatremia; S86.011S Strain of right Achilles tendon, sequela; R53.1 Weakness
CPT/HCPCS: 80048; 97110; 97116; 97165; 97530; 97535

== ENCOUNTER 2016-11-02 17:19 | Observation (INO) | payer MEDICARE, BC ==
--- NOTE | 2016-11-02 18:04 | Emergency Department Record ---
History of Present Illness - General Chief complaint: Extremity Problem Stated complaint: RT ARM GOES LIMP/COLD Time Seen by Provider: 11/02/16 17:57 Source: Patient Mode of Arrival: Wheelchair Limitations: Other (Patient is unable to provide history on examination) - History of Present Illness Initial comments: 81 yo male presents to ED with a CC o generalized weakness and fatigue since yesterday morning. Family at the bedside provides history, patient will only report that he feels "deader than a popcorn fart". Patient denies focal weakness, fevers, chills, cough, abdominal or chest pain symptoms. Patient denies recent illness. Family at the bedside reports intermittent "cold arm" since yesterday morning, patient denies weakness to the extremity. MD Complaint: Other Onset/Timin -: Days(s) Location: Right History of Same: Yes Radiation: None Consistency: Intermittent Improves with: Nothing Worsens with: Nothing Associated Symptoms: Denies other symptoms - Related Data Previous Rx's Medication Instructions Recorded Amlodipine Besylate [Norvasc] 5 mg PO DAILY #30 tab 06/03/16 Allergies Allergy/AdvReac Type Severity Reaction Status Date / Time No Known Drug Allergies Allergy Verified 11/02/16 17:43 Travel Screening - Travel/Exposure Within Last 30 Days Have you traveled within the last 30 days?: No - Travel/Exposure Within Last Year Have you traveled outside the [place] in the last year?: No - Additonal Travel Details Have you been exposed to anyone with a communicable illness?: No - Travel Symptoms Symptom Screening: None Review of Systems ROS unobtainable: Due to mental status Past Medical History - SOCIAL HISTORY Smoking Status: Former smoker Alcohol Use: Occasional Drug Use: None - RESPIRATORY Hx Respiratory Disorders: Yes Hx Bronchitis: Yes (yrs ago) - CARDIOVASCULAR Hx Cardio Disorders: Yes Hx Hypertension: Yes Comment:: "bad back" - NEURO Hx Neuro Disorders: No Hx Seizures: No - GI Hx GI Disorders: Yes Hx Reflux: Yes Hx Ulcer: Yes (1963) - Hx Genitourinary Disorders: Yes Hx Prostate Problems: Yes (cancer 2002) - ENDOCRINE Hx Endocrine Disorders: No Hx Diabetes: No - MUSCULOSKELETAL Hx Musculoskeletal Disorders: Yes Hx Back Injury: Yes (fell in 2010) Comment:: lumbar deteriation- loss of 4" - PSYCH Hx Psych Problems: No - HEMATOLOGY/ONCOLOGY Hx Hematology/Oncology Disorders: Yes Hx Cancer: Yes Hx Chemotherapy: No Hx Radiation Therapy: Yes Hx Blood Transfusions: Yes Hx Blood Transfusion Reaction: No Comment:: radiation seeds 2002 Family Medical History Any Significant Family History?: Yes Hx Anxiety: Brother/Sister *Anxiety Comment: sister Hx Diabetes: Brother/Sister *Diabetes Comment: sister Physical Exam - General General Appearance: Alert, Cooperative, Moderate distress Limitations: Other - Head Head exam: Atraumatic, Normocephalic, Normal inspection Head exam detail: negative: Abrasion, Contusion, Almaguer's sign, General tenderness, Hematoma, Laceration - Eye Eye exam: Normal appearance. negative: Conjunctival injection, Periorbital swelling, Periorbital tenderness, Scleral icterus - ENT Ear exam: negative: Auricular hematoma, Auricular trauma Nasal Exam: negative: Active bleeding, Discharge, Dried blood, Foreign body Mouth exam: negative: Drooling, Laceration, Muffled voice, Tongue elevation - Neck Neck exam: Normal inspection. negative: Meningismus, Tenderness - Respiratory Respiratory exam: Normal lung sounds bilaterally. negative: Respiratory distress, Rhonchi, Stridor, Wheezes - Cardiovascular Cardiovascular Exam: Regular rate, Normal rhythm, Normal heart sounds - GI/Abdominal GI/Abdominal exam: Soft. negative: Distended, Rebound, Rigid, Tenderness - Rectal Rectal exam: Deferred - exam: Deferred - Extremities Extremities exam: Normal inspection, Other (Bilateral upper extremties are warm to the tough, distal radial pulses are symmetric, no focal UE weakness in noted on examination). negative: Calf tenderness, Pedal edema, Tenderness - Back Back exam: Reports: Normal inspection. Denies: CVA tenderness (R), CVA tenderness (L) - Neurological Neurological exam: Alert, Other (No focal neurological deficit to suggest acute CVA). negative: Motor sensory deficit - Psychiatric Psychiatric exam: Normal affect, Normal mood - Skin Skin exam: Normal color. negative: Abrasion Type of lesion: negative: abrasion Course Vital Signs 11/02/16 17:29 Temperature 98.1 F Pulse Rate 71 Respiratory 18 Rate Blood Pressure 133/75 Pulse Ox 98 - Reevaluation(s) Reevaluation #1: 11/02/16 18:11 EKG: NSR 70 Normal axis, normal intervals J-point elevation V1-V4 similar to previous EKG 02/20/14 No reciprocal changes Reevaluation #2: 11/02/16 18:19 Repeat EKG: NSR 66 Normal axis, normal intervals J-point elevation V1-V4, no reciprocal changes are present EKGs are not felt to represent an acute cardiac injury-patient denies chest pain currently as well, EKG essentially unchanged from previous and 02/20/14. Reevaluation #3: 11/02/16 19:33 Labs reviewed, Hgb 11.7, Hct 35.1. Labs are otherwise grossly unremarkable for an acute process. Reevaluation #4: 11/02/16 20:00 CT Brain: Generalized atrophy, nothing acute CXR: Probable RUL/RLL infiltrates. Patient and family members updated on all results, reports that he is feeling much better following oxygen administration and IVBFs. Will initiate treatment with Zithromax and Rocephin and admit for further evaluation. Medical Decision Making - Lab Data Result diagrams: 11/02/16 17:42 11/02/16 17:42 Disposition Disposition: Admit Clinical Impression: Generalized weakness CAP (community acquired pneumonia) Qualifiers: Laterality: right Lung location: unspecified part of lung Qualified Code(s): J18.9 - Pneumonia, unspecified organism Disposition: Still a Patient at [facility] Decision to Admit: Admit from ER Decision to Admit Date: 11/02/16 Decision to Admit Time: 20:03 Condition: (2) Stable Time of Disposition: 20:03 Quality - Quality Measures Quality Measures: N/A - Blood Pressure Screening Does Patient Have Any of the Following: Active Dx of HTN Blood Pressure Classification: Pre-Hypertensive BP Reading Systolic Measurement: 133 Diastolic Measurement: 75 Screening for High Blood Pressure: Patient Exclusion, Hx of HTN [[id number]]
[2016-11-02] MEDS ORDERED: 0.9 % SODIUM CHLORIDE 1000ML 1,000 ML IV SCH (18:15)
[2016-11-02 18:50] LABS: BASO % 0.2 % (0-6); EOS % 4.6 % (0-6); GRAN % 48.1 % (47-80); HEMATOCRIT 35.1 % (42.0-52.0); HEMOGLOBIN 11.7 gm/dl (14.0-18.0); MEAN CELL VOLUME 86.7 fl (81-97); MEAN CORPUSCULAR HGB CONC 33.3 g/dl (32-36); MEAN PLATELET VOLUME 8.9 fl (7.4-10.4); MONO % 13.1 % (0-9); PLATELET COUNT 288 K/uL (130-400); RED BLOOD COUNT 4.05 M/uL (4.40-5.70); RED CELL DISTRIBUTION WIDTH 14.7 % (11.5-14.5); WHITE BLOOD COUNT W/O DIFF 5.8 K/uL (4.2-12.2)
[2016-11-02 18:51] LABS: MEAN CORPUSCULAR HEMOGLOBIN 28.8 pg (27-33)
[2016-11-02 19:22] LABS: ALB/GLOB RATIO 1.8 (1.1-1.8); ALBUMIN 4.2 g/dL (4.0-5.0); ALKALINE PHOSPHATASE 94 U/L (40-129); ALT/SGPT 9 U/L (<41); AST/SGOT 16 U/L (10.0-50.0); BLOOD UREA NITROGEN 11 mg/dL (8-23); CKMB 3.1 ng/mL (<6.73); CREATINE PHOSPHOKINASE 70 U/L (39-308); CREATININE 0.5 mg/dL (0.7-1.2); EST GLOMERULAR FILTRATION RATE > 60 mL/min; GLUCOSE,RANDOM 77 mg/dL (74-109); THYROID STIMULATING HORMONE 2.19 uIU/mL (0.270-4.20); TOTAL PROTEIN 6.5 g/dL (6.6-8.7)
[2016-11-02 19:25] LABS: TROPONIN I < 0.30 ng/mL (0.00-0.300)
[2016-11-02] MEDS ORDERED: CEFTRIAXONE SODIUM 1 GM in 0.9 % SODIUM CHLORIDE 100ML 100 ML IVPB ONE (20:02)
[2016-11-02] MEDS ORDERED: AZITHROMYCIN 500 MG in 0.9 % SODIUM CHLORIDE 250ML 250 ML IVPB ONE (20:02)
[2016-11-02] MEDS ORDERED: ONDANSETRON HCL IV 4 MG/2 ML VIAL IVP ONE (20:41)
[2016-11-02] MEDS ORDERED: IPRATROPIUM/ALBUTEROL (0.5MG/3MG) NEB INH PRN (21:24)
[2016-11-02] MEDS ORDERED: ACETAMINOPHEN 500 MG TABLET PO PRN (21:24)
[2016-11-02] MEDS ORDERED: AZITHROMYCIN 500 MG in 0.9 % SODIUM CHLORIDE 250ML 250 ML IVPB SCH (21:24)
[2016-11-02] MEDS ORDERED: CEFTRIAXONE SODIUM 1 GM in 0.9 % SODIUM CHLORIDE 100ML 100 ML IVPB SCH (21:24)
[2016-11-02] MEDS: 0.9 % SODIUM CHLORIDE 1000ML 1,000 ML IV PRN (23:39)
[2016-11-03] MEDS: PANTOPRAZOLE SODIUM 40 MG TABLET PO SCH (06:32)
[2016-11-03 09:06] LABS: BASO % 0.2 % (0-6); EOS % 4.3 % (0-6); GRAN % 54.5 % (47-80); HEMATOCRIT 34.6 % (42.0-52.0); HEMOGLOBIN 11.2 gm/dl (14.0-18.0); LYMPH % 27.6 % (16-45); MEAN CELL VOLUME 86.7 fl (81-97); MEAN CORPUSCULAR HGB CONC 32.4 g/dl (32-36); MEAN PLATELET VOLUME 8.9 fl (7.4-10.4); MONO % 13.4 % (0-9); PLATELET COUNT 278 K/uL (130-400); RED BLOOD COUNT 3.99 M/uL (4.40-5.70); RED CELL DISTRIBUTION WIDTH 14.6 % (11.5-14.5); WHITE BLOOD COUNT W/O DIFF 4.2 K/uL (4.2-12.2)
[2016-11-03 09:26] LABS: ALB/GLOB RATIO 1.8 (1.1-1.8); ALBUMIN 3.9 g/dL (4.0-5.0); ALKALINE PHOSPHATASE 94 U/L (40-129); ALT/SGPT 8 U/L (<41); AST/SGOT 16 U/L (10.0-50.0); BLOOD UREA NITROGEN 7 mg/dL (8-23); CREATININE 0.5 mg/dL (0.7-1.2); EST GLOMERULAR FILTRATION RATE > 60 mL/min; GLUCOSE,RANDOM 119 mg/dL (74-109); TOTAL PROTEIN 6.1 g/dL (6.6-8.7)
[2016-11-03] MEDS: AMLODIPINE BESYLATE 5MG TAB PO SCH (09:33)
[2016-11-03] MEDS: 0.9 % SODIUM CHLORIDE 1000ML 1,000 ML IV PRN (09:36)
[2016-11-03] MEDS ORDERED: CEFTRIAXONE SODIUM 1 GM in 0.9 % SODIUM CHLORIDE 100ML 100 ML IVPB SCH (20:00)
[2016-11-03] MEDS ORDERED: AZITHROMYCIN 500 MG in 0.9 % SODIUM CHLORIDE 250ML 250 ML IVPB SCH (21:00)
[2016-11-04] MEDS: 0.9 % SODIUM CHLORIDE 1000ML 1,000 ML IV PRN (05:31)
[2016-11-04] MEDS: PANTOPRAZOLE SODIUM 40 MG TABLET PO SCH (06:51)
--- NOTE | 2016-11-04 07:11 | CT SCAN REPORT ---
EXAM: CT OF THE BRAIN WITHOUT CONTRAST HISTORY: WEAKNESS. TECHNIQUE: Sequential axial images were obtained from the foramen magnum to the vertex without contrast administration. Comparison: 04/27/16. FINDINGS: There is age appropriate cortical atrophy. There is periventricular small vessel ischemic change. No large territorial infarct, hemorrhage, mass effect, or midline shift. No extraaxial fluid collection. There is right maxillary sinus disease. The orbits and mastoid air cells appear normal. IMPRESSION: 1. 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 NO DEFINITIVE ACUTE INTRACRANIAL ABNORMALITY. 2. RIGHT MAXILLARY SINUS DISEASE. JOB NUMBER: [id number] [facility]
--- NOTE | 2016-11-04 07:13 | RADIOLOGY REPORT ---
EXAM: PORTABLE CHEST HISTORY: DIFFICULTY IN BREATHING. TECHNIQUE: An AP upright view of the chest was performed. FINDINGS: The heart size is at the upper limits of normal. No pulmonary vascular congestion. There is opacity in the right upper lobe and right lower lobe. Findings may represent pneumonitis. IMPRESSION: FOCAL OPACITY IN THE RIGHT UPPER LOBE AND RIGHT LUNG BASE. FINDINGS MAY REPRESENT PNEUMONIA. JOB NUMBER: [id number] [facility]
[2016-11-04 07:53] LABS: BASO % 0.6 % (0-6); EOS % 7.8 % (0-6); GRAN % 50.7 % (47-80); HEMATOCRIT 37.1 % (42.0-52.0); HEMOGLOBIN 12.6 gm/dl (14.0-18.0); MEAN CELL VOLUME 87.3 fl (81-97); MEAN CORPUSCULAR HEMOGLOBIN 29.6 pg (27-33); MEAN PLATELET VOLUME 8.8 fl (7.4-10.4); MONO % 10.9 % (0-9); PLATELET COUNT 278 K/uL (130-400); RED BLOOD COUNT 4.25 M/uL (4.40-5.70); RED CELL DISTRIBUTION WIDTH 14.8 % (11.5-14.5); WHITE BLOOD COUNT W/O DIFF 4.8 K/uL (4.2-12.2)
[2016-11-04 08:08] LABS: ALB/GLOB RATIO 1.8 (1.1-1.8); ALBUMIN 4.2 g/dL (4.0-5.0); ALKALINE PHOSPHATASE 100 U/L (40-129); ALT/SGPT 8 U/L (<41); AST/SGOT 19 U/L (10.0-50.0); BLOOD UREA NITROGEN 6 mg/dL (8-23); CREATININE 0.5 mg/dL (0.7-1.2); EST GLOMERULAR FILTRATION RATE > 60 mL/min; GLUCOSE,RANDOM 98 mg/dL (74-109); TOTAL PROTEIN 6.5 g/dL (6.6-8.7)
--- NOTE | 2016-11-04 08:32 | History & Physical ---
History of Present Illness - Date of Service Date of Service for History & Physical: 11/03/16 - History of Present Illness Admitting Diagnosis: CAP. Generalized Weakness History of Present Illness: 81yo male with CC of generalized weakness and fatigue. He has history of htn, lumbar DDD, GERD, prostat cancer with chemo, bronchitis and was a former smoker. Patient presented to the ED with 2 days of progressive generalized weakness and fatigue. He just felt exhausted. He was not having cough or shortness of breath. While in the ED, patient had EKG that showed J point elevated in anterior leads that was unchanged from previous ekg in 2015. 1st set of CE returned wnl range. CT head showed chronic atrophy and severe periventricular ischemic changes but no acute pathology. CXR showed right upper and base opacities which could represent penumonia vs chronic ILD. WBC count was wnl range. CMP showed sodium of 129, chloride of 89. BUN/cr wnl range. Patient was started on IV rocephin and azithromycin and admitted for pneumonia 11/03/16- Patient states he is feeling better today. He says he has a little more energy but still feels more fatigued than usual. He is denying any chest pain, shortness of breath or cough. 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 no other localizing weakness or sensation changes. Travel Screening - Travel/Exposure Within Last 30 Days Have you traveled within the last 30 days?: No - Travel/Exposure Within Last Year Have you traveled outside the [place] in the last year?: No - Additonal Travel Details Have you been exposed to anyone with a communicable illness?: No - Travel Symptoms Symptom Screening: None Review of Systems Constitutional: Reports: Malaise (fatigued ), Weakness (generalized). Denies: Chills, Fever Eyes: Denies: Eye pain ENT: Denies: Congestion, Ear pain, Throat pain Respiratory: Denies: Cough, Dyspnea, Wheezes Cardiovascular: Denies: Chest pain, Edema, Palpitations, Syncope Endocrine: Reports: Fatigue Gastrointestinal: Denies: Abdominal pain, Constipation, Diarrhea, Nausea, Vomiting Musculoskeletal: Reports: Back pain (chronic) Skin: Denies: Bruising, Rash Neurological: Denies: Confusion, Headache, Numbness, Paresthesias, Tingling, Vertigo Psychiatric: Denies: Anxiety, Depression Past Medical History - SOCIAL HISTORY Smoking Status: Former smoker Alcohol Use: Occasional Drug Use: None - RESPIRATORY Hx Respiratory Disorders: Yes Hx Bronchitis: Yes (yrs ago) - CARDIOVASCULAR Hx Cardio Disorders: Yes Hx Hypertension: Yes Comment:: "bad back" - NEURO Hx Neuro Disorders: No Hx Seizures: No - GI Hx GI Disorders: Yes Hx Reflux: Yes Hx Ulcer: Yes (1963) - Hx Genitourinary Disorders: Yes Hx Prostate Problems: Yes (cancer 2002) - ENDOCRINE Hx Endocrine Disorders: No Hx Diabetes: No - MUSCULOSKELETAL Hx Musculoskeletal Disorders: Yes Hx Back Injury: Yes (fell in 2010) Comment:: lumbar deteriation- loss of 4" - PSYCH Hx Psych Problems: No - HEMATOLOGY/ONCOLOGY Hx Hematology/Oncology Disorders: Yes Hx Cancer: Yes Hx Chemotherapy: No Hx Radiation Therapy: Yes Hx Blood Transfusions: Yes Hx Blood Transfusion Reaction: No Comment:: radiation seeds 2002 Family Medical History Any Significant Family History?: Yes Hx Anxiety: Brother/Sister *Anxiety Comment: sister Hx Diabetes: Brother/Sister *Diabetes Comment: sister H&P Meds/Allergies - Allergies Allergies: Allergies Allergy/AdvReac Type Severity Reaction Status Date / Time No Known Drug Allergies Allergy Verified 11/02/16 17:43 - Home Medications Previous Rx's Medication Instructions Recorded Amlodipine Besylate [Norvasc] 5 mg PO DAILY #30 tab 06/03/16 - Active Medications Active Medications: Current Medications Acetaminophen (Tylenol 500mg Tab) 1,000 mg PO Q6H PRN PRN Reason: PAIN/TEMP Albuterol/Ipratropium (Duoneb) 3 ml INH RESP.Q4H PRN PRN Reason: Wheezing Amlodipine Besylate (Norvasc) 5 mg PO DAILY [facility] Last Admin: 11/03/16 09:33 Dose: 5 mg Sodium Chloride () 1,000 mls @ 100 mls/hr IV .Q10H PRN PRN Reason: LARGE VOLUME IV Last Admin: 11/04/16 05:31 Dose: 100 mls/hr Ceftriaxone Sodium 1 gm/ (Sodium Chloride) 100 mls @ 100 mls/hr IVPB Q24H [facility] Stop: 11/08/16 20:01 Last Infusion: 11/03/16 21:15 Dose: Infused Azithromycin 500 mg/ Sodium (Chloride) 250 mls @ 250 mls/hr IVPB Q24H [facility] Stop: 11/08/16 21:01 Last Infusion: 11/03/16 22:45 Dose: Infused Pantoprazole Sodium (Protonix) 40 mg PO DAILYAC [facility] Last Admin: 11/04/16 06:51 Dose: 40 mg Physical Exam - Vital Signs Vital Signs: Vital Signs - Last 24 Hrs Temp Pulse Resp BP Pulse Ox 11/04/16 07:47 97.9 F 77 20 136/87 95 11/03/16 20:00 98.0 F 82 18 133/78 98 11/03/16 16:00 98.1 F 84 20 141/86 97 11/03/16 09:30 18 97 - General General Appearance: Alert, Oriented x3, Cooperative, No acute distress - Head Head exam: Atraumatic, Normocephalic, Normal inspection Head exam detail: negative: Abrasion, Contusion, Almaguer's sign, General tenderness, Hematoma, Laceration - Eye Eye exam: Normal appearance. negative: Conjunctival injection, Periorbital swelling, Periorbital tenderness, Scleral icterus - ENT Ear exam: negative: Auricular hematoma, Auricular trauma Nasal Exam: negative: Active bleeding, Discharge, Dried blood, Foreign body Mouth exam: negative: Drooling, Laceration, Muffled voice, Tongue elevation - Neck Neck exam: Normal inspection. negative: Meningismus, Tenderness - Respiratory Respiratory exam: Decreased breath sounds (throughout). negative: Respiratory distress, Rhonchi, Stridor, Wheezes - Cardiovascular Cardiovascular Exam: Regular rate, Normal rhythm, Normal heart sounds - GI/Abdominal GI/Abdominal exam: Soft. negative: Distended, Rebound, Rigid, Tenderness - Rectal Rectal exam: Deferred - exam: Deferred - Extremities Extremities exam: Normal inspection, Other (distal radial pulses are symmetric, no focal UE weakness in noted on examination). negative: Calf tenderness, Pedal edema, Tenderness - Back Back exam: Reports: Normal inspection. Denies: CVA tenderness (R), CVA tenderness (L) - Neurological Neurological exam: Alert, Other (No focal neurological deficit to suggest acute CVA). negative: Motor sensory deficit - Psychiatric Psychiatric exam: Normal affect, Normal mood - Skin Skin exam: Normal color. negative: Abrasion Type of lesion: negative: abrasion Results - Labs Result Diagrams: 11/04/16 07:45 11/04/16 07:45 Labs Last 24 Hours: Laboratory Results - last 24 hr 11/03/16 11/03/16 11/04/16 08:45 08:45 07:45 WBC 4.2 4.8 RBC 3.99 L 4.25 L Hgb 11.2 L 12.6 L Hct 34.6 L 37.1 L MCV 86.7 87.3 MCH 28.0 29.6 MCHC 32.4 34.0 RDW 14.6 H 14.8 H Plt Count 278 278 MPV 8.9 8.8 Gran % 54.5 50.7 Lymphocytes % 27.6 30.0 Monocytes % 13.4 H 10.9 H Eosinophils % 4.3 7.8 H Basophils % 0.2 0.6 Sodium 130 L Potassium 3.6 Chloride 92 L Carbon Dioxide 27.0 Anion Gap 11.0 BUN 7 L Creatinine 0.5 L Estimated GFR > 60 Random Glucose 119 H Calcium 8.9 Total Bilirubin 0.60 AST 16 ALT 8 Alkaline Phosphatase 94 Total Protein 6.1 L Albumin 3.9 L Globulin 2.2 Albumin/Globulin Ratio 1.8 11/04/16 07:45 WBC RBC Hgb Hct MCV MCH MCHC RDW Plt Count MPV Gran % Lymphocytes % Monocytes % Eosinophils % Basophils % Sodium 134 L Potassium 3.3 L Chloride 92 L Carbon Dioxide 31.0 H Anion Gap 11.0 BUN 6 L Creatinine 0.5 L Estimated GFR > 60 Random Glucose 98 Calcium 8.9 Total Bilirubin 0.50 AST 19 ALT 8 Alkaline Phosphatase 100 Total Protein 6.5 L Albumin 4.2 Globulin 2.3 Albumin/Globulin Ratio 1.8 VTE H&P Assessment - Risk for VTE Risk for VTE: Yes Risk Level: High Risk Assessment Date: 11/03/16 Risk Assessment Time: 10:00 VTE Orders Placed or Will Be Placed: Yes Plan - Detailed Diagnosis and Plan (1) CAP (community acquired pneumonia) Current Visit: Yes Status: Acute Qualifiers: Laterality: right Lung location: unspecified part of lung Qualified Code( s): J18.9 - Pneumonia, unspecified organism Base Code: J18.9 - PNEUMONIA, UNSPECIFIED ORGANISM Comment: 11/03/16- CXR showed right upper lobe and right base opacities suggestive of pneumonia. WBC count was wnl and he is afebrile. no blood cultures obtained by ED prior to starting abx. -continue rocephin 1gm IV q12H and azithromycin 500mg IV q24H -vitals q8H -repeat labs qam (2) Generalized weakness Current Visit: Yes Status: Acute Base Code: R53.1 - WEAKNESS Comment: 11/03- generalized weakness with no focal deficits on exam. CT head showed chronic small vessel ischemic changes. no acute pathology. patient's sodium was found to be 129 at admission which may be contributing factor as well as suspected acute pneumonia. -will continue to monitor. Patient already has home health with PT. -continue IVF with NS -repeat labs -continue treating suspected CAP (3) Full code status Current Visit: Yes Status: Acute Base Code: Z78.9 - OTHER SPECIFIED HEALTH STATUS Comment: 11/03/16- patient is full code (4) DVT prophylaxis Current Visit: No Status: Acute Base Code: [id number] - Comment: 11/03/16- will start lovenox 40mg QD Inpatient Certification Admit to inpatient care: Based on my medical assessment, after consideration of patient's risk factors (age, co-morbidities and patient presenting symptoms and acuity), I expect that this patient will remain in the hospital greater than or equal to two midnights and that the services needed warrant inpatient care because: Patient Risk Factors: [age 81yo, Community acquired pneumonia, generalized weakness] Estimated length of stay: []48-72h The patient may reasonably be expected to be discharged or transferred to a hospital within 96 hours after admission to [facility]. Services needed: [IV antibiotics, IV fluids] Post hospital care (if known): [home health care] I certify that my determination is in accordance with my understanding of Medicare requirements for reasonable and necessary inpatient services. 11/04/16 08:48
[2016-11-04] MEDS ORDERED: ENOXAPARIN 40 MG/0.4 ML SYR SQ SCH (10:00)
[2016-11-04] MEDS: AMLODIPINE BESYLATE 5MG TAB PO SCH (10:23)
[2016-11-04] MEDS ORDERED: POTASSIUM CHLORIDE 10 MEQ TAB PO ONE (11:15)
--- NOTE | 2016-11-04 11:31 | Discharge Summary ---
Providers Discharge Summary Date: 11/04/16 Date of admission: 11/02/16 21:08 Expected Date of Discharge: 11/04/16 Attending physician: Ramiro Galarza Primary care physician: Ramiro Galarza Physical Exam - Vital Signs Vital Signs: Vital Signs - Last 24 Hrs Temp Pulse Pulse Resp BP Pulse Ox 11/04/16 08:31 94 H 20 11/04/16 07:47 97.9 F 77 20 136/87 95 11/03/16 20:00 98.0 F 82 18 133/78 98 11/03/16 16:00 98.1 F 84 20 141/86 97 - General General Appearance: Alert, Oriented x3, Cooperative, No acute distress Limitations: Other - Head Head exam: Atraumatic, Normocephalic, Normal inspection Head exam detail: negative: Abrasion, Contusion, Almaguer's sign, General tenderness, Hematoma, Laceration - Eye Eye exam: Normal appearance. negative: Conjunctival injection, Periorbital swelling, Periorbital tenderness, Scleral icterus - ENT Ear exam: negative: Auricular hematoma, Auricular trauma Nasal Exam: negative: Active bleeding, Discharge, Dried blood, Foreign body Mouth exam: negative: Drooling, Laceration, Muffled voice, Tongue elevation - Neck Neck exam: Normal inspection. negative: Meningismus, Tenderness - Respiratory Respiratory exam: Decreased breath sounds (throughout). negative: Respiratory distress, Rhonchi, Stridor, Wheezes - Cardiovascular Cardiovascular Exam: Regular rate, Normal rhythm, Normal heart sounds - GI/Abdominal GI/Abdominal exam: Soft. negative: Distended, Rebound, Rigid, Tenderness - Rectal Rectal exam: Deferred - exam: Deferred - Extremities Extremities exam: Normal inspection, Other (distal radial pulses are symmetric, no focal UE weakness in noted on examination). negative: Calf tenderness, Pedal edema, Tenderness - Back Back exam: Reports: Normal inspection. Denies: CVA tenderness (R), CVA tenderness (L) - Neurological Neurological exam: Alert, Other (No focal neurological deficit to suggest acute CVA). negative: Motor sensory deficit - Psychiatric Psychiatric exam: Normal affect, Normal mood - Skin Skin exam: Normal color. negative: Abrasion Type of lesion: negative: abrasion Hospitalization - Hospitalization Admission Diagnosis: CAP. Generalized Weakness - Problem List/Discharge Diagnosis (1) CAP (community acquired pneumonia) Current Visit: Yes Status: Acute Discharge Diagnosis: Laterality: right Lung location: unspecified part of lung Qualified Code( s): J18.9 - Pneumonia, unspecified organism Base Code: J18.9 - PNEUMONIA, UNSPECIFIED ORGANISM Comment: 11/04/16- Patient feeling much better today. CXR showed right upper lobe and right base opacities suggestive of pneumonia. WBC count was wnl and he is afebrile. no blood cultures obtained by ED prior to starting abx. -transition to oral abx with cefdinir 300mg po bid for 7 more days and azithromycin 250mg po daily for 3 more days -nursing will be setting up appointment with Dr. Galarza to follow up this week. May need repeat XR to ensure resolution of opacities with his smoking history (2) Generalized weakness Current Visit: Yes Status: Acute Base Code: R53.1 - WEAKNESS Comment: 11/04- resolving. Patient declines any PT/OT services and declines rehab evaluation at this time. His sodium improved to 134 from 129. Potassium dropped slightly to 3.2. Patient usually takes potassium supplement at home but forgot to mention so he received 20mg of potassium chloride today and will resume his usual dose tomorrow. CT head showed chronic small vessel ischemic changes. no acute pathology. -will plan to discharge home today -lab order given to have CMP repeated prior to outpatient pcp follow up this week. (3) Full code status Current Visit: Yes Status: Acute Base Code: Z78.9 - OTHER SPECIFIED HEALTH STATUS Comment: 11/04/16- patient is full code (4) DVT prophylaxis Current Visit: No Status: Acute Base Code: [id number] - Comment: 11/04/16- lovenox 40mg daily for prophylaxis given - Hospitalization Course Disposition: Home, Self-Care Hospital Course: 81yo male with CC of generalized weakness and fatigue. He has history of htn, lumbar DDD, GERD, prostat cancer with chemo, bronchitis and was a former smoker. Patient presented to the ED with 2 days of progressive generalized weakness and fatigue. He just felt exhausted. He was not having cough or shortness of breath. While in the ED, patient had EKG that showed J point elevated in anterior leads that was unchanged from previous ekg in 2015. 1st set of CE returned wnl range. CT head showed chronic atrophy and severe periventricular ischemic changes but no acute pathology. CXR showed right upper and base opacities which could represent penumonia vs chronic ILD. WBC count was wnl range. CMP showed sodium of 129, chloride of 89. BUN/cr wnl range. Patient was started on IV rocephin and azithromycin and admitted for pneumonia 11/03/16- Patient states he is feeling better today. He says he has a little more energy but still feels more fatigued than usual. He is denying any chest pain, shortness of breath or cough. 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 no other localizing weakness or sensation changes. 11/04/16-Patient states he is feeling great today. He says he has a lot more energy and denies any weakness. He continues to deny cough, shortness of breath or chest pain. He is anxious to get home and does not feel like he needs home health services. Abnormal Labs: Abnormal Lab Results 11/03/16 11/03/16 11/04/16 Range/Units 08:45 08:45 07:45 RBC 3.99 L 4.25 L (4.40-5.70) M/uL Hgb 11.2 L 12.6 L (14.0-18.0) gm/dl Hct 34.6 L 37.1 L (42.0-52.0) % RDW 14.6 H 14.8 H (11.5-14.5) % Monocytes % 13.4 H 10.9 H (0-9) % Eosinophils % 7.8 H (0-6) % Sodium 130 L (136-145) mmol/L Potassium (3.4-4.5) mmol/L Chloride 92 L (98-107) mmol/L Carbon Dioxide (22-29) mmol/L BUN 7 L (8-23) mg/dL Creatinine 0.5 L (0.7-1.2) mg/dL Random Glucose 119 H (74-109) mg/dL Total Protein 6.1 L (6.6-8.7) g/dL Albumin 3.9 L (4.0-5.0) g/dL 11/04/16 Range/Units 07:45 RBC (4.40-5.70) M/uL Hgb (14.0-18.0) gm/dl Hct (42.0-52.0) % RDW (11.5-14.5) % Monocytes % (0-9) % Eosinophils % (0-6) % Sodium 134 L (136-145) mmol/L Potassium 3.3 L (3.4-4.5) mmol/L Chloride 92 L (98-107) mmol/L Carbon Dioxide 31.0 H (22-29) mmol/L BUN 6 L (8-23) mg/dL Creatinine 0.5 L (0.7-1.2) mg/dL Random Glucose (74-109) mg/dL Total Protein 6.5 L (6.6-8.7) g/dL Albumin (4.0-5.0) g/dL Condition at Discharge: (2) Stable Discharge Medications - Discharge Medications Prescriptions: Azithromycin 250 mg PO DAILY #3 tablet Cefdinir 300 mg PO BID #14 capsule Home Medications: Ambulatory Orders Omeprazole 20 mg PO QAM 02/20/14 [Last Taken 1 Day Ago ~11/01/16] Calcium Carbonate/Vitamin D3 [Caltrate 600 Plus D3 Tablet] 1 each PO DAILY 05/23 [Last Taken 1 Day Ago ~11/01/16] Cranberry 500 mg PO DAILY 05/23/16 [Last Taken 1 Day Ago ~11/01/16] Fexofenadine HCl [Camille Allergy] 180 mg PO DAILY 05/23/16 [Last Taken 1 Day Ago ~11/01/16] Garlic 2,000 mg PO DAILY 05/23/16 [Last Taken 1 Day Ago ~11/01/16] Magnesium Oxide [Magnesium] 400 mg PO DAILY 05/23/16 [Last Taken 1 Day Ago ~] Multivit-Min/FA/Lycopen/Lutein [Centrum Silver Men Tablet] 1 each PO DAILY 05/23 [Last Taken 1 Day Ago ~11/01/16] Amlodipine Besylate [Norvasc] 5 mg PO DAILY #30 tab 06/03/16 [Last Taken 1 Day Ago ~11/01/16] Azithromycin 250 mg PO DAILY #3 tablet 11/04/16 [Last Taken Unknown] Cefdinir 300 mg PO BID #14 capsule 11/04/16 [Last Taken Unknown] Discharge Plan - Discharge Instructions Activity at Discharge: Resume Usual Activities As Tolerated Diet at Discharge: Low Fat, Low Cholesterol Additional Instructions: Follow up with Dr. Galarza in 1 week Please have labs done prior to your appointment Continue cefdinir 300mg by mouth twice daily for 7 more days starting this evening continue azithromycin 250mg by mouth once daily for 3 more days starting this evening Please call with any questions or concerns Return to ED for any new/worsening symptoms Quality Measures - Quality Measures Quality Measures: Advance Directives, Documentation of Current Medications in Medical Record, Elder Maltreatment Screen and Follow-Up Plan, Screening for High Blood Pressure and F/U Documented - Current Medications Quality Measure: Measure #130: Documentation of Current Medications Documentation of Current Medications: <Current Medications Documented/Reviewed> [G7311] - Blood Pressure Screening Quality Measure: Screening for High Blood Pressure and Follow-Up Documented Does Patient Have Any of the Following: Active Dx of HTN Blood Pressure Classification: Pre-Hypertensive BP Reading Systolic Measurement: 133 Diastolic Measurement: 75 Screening for High Blood Pressure: Patient Exclusion, Hx of HTN [G9744] - Advance Directives Quality Measure: Measure #47: Care Plan Advance Directives Established: No Advance Directives Information Provided To Patient: No Advance Directives on File: No Living Will: No Power of Crm Specialist: Yes Power of Crm Specialist Name: tim johnson Advance Care Planning: <Care Plan/Decision Maker Documented; Discussed & Documented> [[id number]] - Elder Abuse Suspicion Index Screening: Elder Abuse Suspicion Index Screening Rely on people for bathing, dressing, shopping, banking, etc: No Prevented from getting food, clothes, medication, etc: No Made to feel shamed or threatened by someone: No Forced to sign papers or use money against will: No Feel afraid, touched in ways not wanted or hurt physically: No Poor eye contact, withdrawn, malnourished, cuts or bruises: No Screening Result: Negative result EASI Reference Information: Penelope NG, Osvaldo C, Taina D, Porfirio Bo.Development and validation of a tool to assist physicians identification of elder abuse: The Elder Abuse Suspicion Index (EASI ). Journal of Elder Abuse and Neglect, 2008; 20 (3): 276-300. - Elder Maltreatment Screen Quality Measures: Elder Maltreatment Screen and Follow-Up Plan Elder Maltreatment Screen: <Negative, No Follow-Up Plan Required> [G8734]
== END 2016-11-04 14:30 | disposition home or self-care (01) ==
LOC: ER 17:19 → MEDSURG 21:08
PROVIDERS: ADMIT Internal Medicine; ATTEND Internal Medicine
DX: J18.9 Pneumonia, unspecified organism (principal); R53.1 Weakness; I10 Essential (primary) hypertension; Z78.9 Other specified health status; Z85.46 Personal history of malignant neoplasm of prostate; Z87.891 Personal history of nicotine dependence
CPT/HCPCS: 93041; 99285 ×2; 94760 ×2; 96365; 96366; 96375; 82550; 82140; 85025 ×3; 82553; 84484; 80053 ×3; 84443; 71010; 70450; 93005; 93010; G0378 ×3; J2405; 99220; J0456; J7050

== ENCOUNTER 2016-11-18 09:16 | Emergency (ER) | payer MEDICARE, BC ==
--- NOTE | 2016-11-18 09:29 | Emergency Department Record ---
History of Present Illness - General Chief Complaint: Shortness of breath Stated Complaint: RANDA Time Seen by Provider: 11/18/16 09:26 Source: Patient, Family Mode of Arrival: Wheelchair Limitations: No limitations - History of Present Illness Initial Comments: The patient is here with his son due to waking up today and feeling very weak all over. He denies any pain, headache, fever or cough but may have mild SOB at times. The patient was in the hospital last month about 2 weeks ago for pneumonia and states he almost feels the same. There has been no abdominal or back pain, nausea, vomiting, or confusion. He just finished his Abx about a week ago. Onset/Timin -: Days(s) Consistency: Constant Improves With: Nothing Worsens With: Exertion Known History Of: Other Associated Symptoms: Cough Treatments Prior to Arrival: None - Related Data Home Oxygen Therapy: No Previous Rx's Medication Instructions Recorded Amlodipine Besylate [Norvasc] 5 mg PO DAILY #30 tab 06/03/16 Allergies Allergy/AdvReac Type Severity Reaction Status Date / Time No Known Drug Allergies Allergy Verified 11/02/16 17:43 Travel Screening - Travel/Exposure Within Last 30 Days Have you traveled within the last 30 days?: No Review of Systems Constitutional: Reports: Malaise. Denies: Chills, Fever Eyes: Denies: Eye discharge ENT: Denies: Congestion Respiratory: Denies: Cough, Dyspnea Cardiovascular: Denies: Arrhythmia, Chest pain Endocrine: Reports: Fatigue Past Medical History - SOCIAL HISTORY Smoking Status: Former smoker - RESPIRATORY Hx Respiratory Disorders: Yes Hx Bronchitis: Yes (yrs ago) - CARDIOVASCULAR Hx Cardio Disorders: Yes Hx Hypertension: Yes Comment:: "bad back" - NEURO Hx Neuro Disorders: No Hx Seizures: No - GI Hx GI Disorders: Yes Hx Reflux: Yes Hx Ulcer: Yes (1963) - Hx Genitourinary Disorders: Yes Hx Prostate Problems: Yes (cancer 2002) - ENDOCRINE Hx Endocrine Disorders: No Hx Diabetes: No - MUSCULOSKELETAL Hx Musculoskeletal Disorders: Yes Hx Back Injury: Yes (fell in 2010) Comment:: lumbar deteriation- loss of 4" - PSYCH Hx Psych Problems: No - HEMATOLOGY/ONCOLOGY Hx Hematology/Oncology Disorders: Yes Hx Cancer: Yes Hx Chemotherapy: No Hx Radiation Therapy: Yes Hx Blood Transfusions: Yes Hx Blood Transfusion Reaction: No Comment:: radiation seeds 2002 Family Medical History Any Significant Family History?: Yes Hx Anxiety: Brother/Sister *Anxiety Comment: sister Hx Diabetes: Brother/Sister *Diabetes Comment: sister Physical Exam - General General Appearance: Alert, Cooperative, No acute distress - Head Head exam: Atraumatic, Normocephalic, Normal inspection - Eye Eye exam: Normal appearance, PERRL - ENT Throat exam: Normal inspection. negative: Tonsillar erythema, Tonsillar exudate - Neck Neck exam: Normal inspection, Full ROM. negative: Tenderness - Respiratory Respiratory exam: Decreased breath sounds. negative: Accessory muscle use (The patient is speaking in full sentences with no RANDA.), Respiratory distress, Rhonchi, Stridor, Wheezes - Cardiovascular Cardiovascular Exam: Regular rate, Normal rhythm, Normal heart sounds - GI/Abdominal GI/Abdominal exam: Soft, Normal bowel sounds. negative: Tenderness - Extremities Extremities exam: Normal inspection, Full ROM, Normal capillary refill, Other ( Normal and equal radial pulses bilaterally with normal arm and hand sensation and temperature.). negative: Tenderness - Back Back exam: Reports: Normal inspection - Neurological Neurological exam: Alert, Normal gait. negative: Abnormal gait, Motor sensory deficit - Skin Skin exam: negative: Rash Course Vital Signs 11/18/16 09:19 Temperature 97.6 F Pulse Rate 98 H Respiratory 20 Rate Blood Pressure 141/86 Pulse Ox 99 - Reevaluation(s) Reevaluation #1: The patient is doing very well at this time. He feels much better and feels much less weak and fatigued. 11/18/16 10:40 Reevaluation #2: The patient is doing very well at this time. He feels much better with no pain, confusion, cough or weakness. 11/18/16 11:19 Reevaluation #3: The patient is doing a lot better. He is up walking with no weakness or fatigue and feels 100% back to normal. I explained to him that the cxr does demonstrate a 2x2 cm area of most likely residual infiltrate in the R upper lung. The patient just finished his oral Abx's a week ago and will need a repeat cxr in 3- 4 weeks to be sure the infiltrate resolves. The patient states he does have an appointment with his PCP in 4 weeks for the cxr. 11/18/16 12:14 Reevaluation #4: I have attempted to contact his PCP multiple times but have not been successful. The patient very much would like to leave because he feels so much better. We will attempt to contact Dr. Galarza after the patient leaves. 11/18/16 12:30 Reevaluation #5: I was successful contacting Dr. Galarza and he is aware of the CXR and the need for a repeat film in 3-4 weeks to assure clearing of the infiltrate. 11/18/16 12:47 Medical Decision Making - Data Complexity MDM Data: Labs Ordered and/or Reviewed, X-Ray Ordered and/or Reviewed, EKG Ordered and/or Reviewed - Lab Data Result diagrams: 11/18/16 09:35 11/18/16 09:35 - EKG Data -: EKG Interpreted by Me EKG: No Acute Changes, Unchanged From Previous - Radiology Data Radiology results: Report reviewed (CXR: R upper lung small opacity most consistent with recent pneumonia. ) Disposition Disposition: Discharge Clinical Impression: Weakness Disposition: Home, Self-Care Condition: (1) Good Instructions: Weakness (ED) Additional Instructions: Please increase your fluid intake and eat well. Please see your PCP in 3-4 weeks for recheck and for a repeat CXR to make sure the infiltrate is clearing. Return to the ER for any problems or new issues. Forms: Patient Portal Access Time of Disposition: 12:19 Quality - Quality Measures Quality Measures: N/A - Blood Pressure Screening View Details: Yes Does Patient Have Any of the Following: No Blood Pressure Classification: Pre-Hypertensive BP Reading Systolic Measurement: 143 Diastolic Measurement: 80 Screening for High Blood Pressure: < Pre-Hypertensive BP, F/U Documented > [ G8950] Pre-Hypertensive Follow-up Interventions: Referral to alternative/primary care provider.
[2016-11-18 09:51] LABS: BASO % 0.2 % (0-6); EOS % 3.3 % (0-6); GRAN % 60.6 % (47-80); HEMATOCRIT 36.9 % (42.0-52.0); HEMOGLOBIN 12.4 gm/dl (14.0-18.0); LYMPH % 22.4 % (16-45); MEAN CELL VOLUME 86.8 fl (81-97); MEAN CORPUSCULAR HGB CONC 33.6 g/dl (32-36); MEAN PLATELET VOLUME 8.4 fl (7.4-10.4); MONO % 13.5 % (0-9); PLATELET COUNT 284 K/uL (130-400); RED BLOOD COUNT 4.25 M/uL (4.40-5.70); RED CELL DISTRIBUTION WIDTH 14.6 % (11.5-14.5); WHITE BLOOD COUNT W/O DIFF 4.6 K/uL (4.2-12.2)
[2016-11-18 09:54] LABS: MEAN CORPUSCULAR HEMOGLOBIN 29.1 pg (27-33)
[2016-11-18] MEDS: 0.9 % SODIUM CHLORIDE 1,000 ML BAG IV ONE (10:00)
[2016-11-18 10:08] LABS: INR 0.96; PARTIAL THROMBOPLASTIN TIME 27.3 SECONDS (24.5-39.1); PROTHROMBIN TIME (PATIENT) 10.4 SECONDS (9.5-12.1)
[2016-11-18 10:23] LABS: ALB/GLOB RATIO 1.8 (1.1-1.8); ALBUMIN 4.2 g/dL (4.0-5.0); ALKALINE PHOSPHATASE 102 U/L (40-129); ALT/SGPT 11 U/L (<41); AST/SGOT 17 U/L (10.0-50.0); BLOOD UREA NITROGEN 12 mg/dL (8-23); CKMB 2.9 ng/mL (<6.73); CREATINE PHOSPHOKINASE 58 U/L (39-308); CREATININE 0.6 mg/dL (0.7-1.2); EST GLOMERULAR FILTRATION RATE > 60 mL/min; GLUCOSE,RANDOM 116 mg/dL (74-109); THYROID STIMULATING HORMONE 1.41 uIU/mL (0.270-4.20); TOTAL PROTEIN 6.6 g/dL (6.6-8.7)
[2016-11-18 10:27] LABS: TROPONIN I < 0.30 ng/mL (0.00-0.300)
[2016-11-18 11:50] LABS: URINE APPEARANCE CLEAR; URINE BILIRUBIN NEGATIVE (NEGATIVE); URINE BLOOD NEGATIVE (NEGATIVE); URINE COLOR YELLOW; URINE GLUCOSE (UA) NEGATIVE (NEGATIVE); URINE KETONE NEGATIVE (NEGATIVE); URINE LEUKOCYTE ESTERASE NEGATIVE (NEGATIVE); URINE NITRITE NEGATIVE (NEGATIVE); URINE PROTEIN NEGATIVE (NEGATIVE); URINE UROBILINOGEN 0.2 E.U./dL (0.20 - 1.00)
--- NOTE | 2016-11-20 08:07 | RADIOLOGY REPORT ---
EXAM: CHEST, TWO VIEWS HISTORY: DIFFICULTY IN BREATHING. TECHNIQUE: PA and lateral views of the chest were obtained. Comparison: AP chest 11/02/16. FINDINGS: The heart size is normal. Postop changes over the sternum as before. Scattered interstitial infiltrate is seen similar to before which may represent fibrosis, however, there is a subtle focal opacity about 2.5 cm in size overlying the right mid lung laterally. This was difficult to visualize previously and may just be some focal infiltrate, I would recommend a follow-up study in a week or so and if this appearance persists, a follow-up chest CT would then be suggested to exclude a subtle underlying nodule/mass. No pleural effusion or pneumothorax evident. The lungs do appear hyperinflated suggesting underlying COPD. There are chronic compression fractures in the bodies of what are probably T8 and T11 as well as L1 and L2. These were difficult to visualize on the prior frontal only study, but are seen on the prior lateral chest x-ray of 04/05/16 as well. IMPRESSION: 1. HYPERINFLATION CONSISTENT WITH COPD PROBABLY WITH FIBROSIS. 2. VAGUE 2.5 CM OPACITY RIGHT MID LUNG LATERALLY MAY JUST BE A FOCUS OF INFILTRATE. FOLLOW-UP CHEST X-RAY AFTER SUITABLE THERAPY IS SUGGESTED TO BE CERTAIN THIS CLEARS. IF PERSISTENT, CHEST CT AT THAT TIME WOULD BE SUGGESTED. 3. POSTOP STERNOTOMY AND CHRONIC COMPRESSION FRACTURES IN THE THORACIC AND LUMBAR SPINE. JOB NUMBER: [id number] [facility]
== END 2016-11-18 12:48 | disposition home or self-care (01) ==
LOC: ER 09:16
DX: R53.1 Weakness (principal); R91.8 Other nonspecific abnormal finding of lung field; R06.02 Shortness of breath; R05 Cough; I10 Essential (primary) hypertension; Z85.46 Personal history of malignant neoplasm of prostate; Z87.891 Personal history of nicotine dependence
CPT/HCPCS: 71020; 80053; 81003; 82550; 82553; 83880; 84443; 84484; 85025; 85610; 85730; 93005; 93010; 99284; J7030

== ENCOUNTER 2017-01-11 11:54 | Emergency (ER) | payer MEDICARE, BC ==
--- NOTE | 2017-01-11 12:26 | Emergency Department Record ---
History of Present Illness - General Chief Complaint: Cough Stated Complaint: COUGH Time Seen by Provider: 01/11/17 12:14 Source: Patient Mode of Arrival: Wheelchair Limitations: No limitations - History of Present Illness Initial Comments: The patient is here due to having a cough for about a month. He was in a coughing fit today and then developed mid back pain over his thoracic spine. He denies any anterior chest pain, SOB, RANDA, or fever. The pain is sharp and stabbing and is much worse with coughing and laying flat on his back. MD Complaint: Cough Onset/Timin -: Minutes(s) Severity: Moderate Severity scale (1-10): 10 - Related Data Previous Rx's Medication Instructions Recorded Amlodipine Besylate [Norvasc] 5 mg PO DAILY #30 tab 06/03/16 Albuterol Sulfate [Proair Hfa] 2 puff IH QID PRN #1 inhaler 01/11/17 Doxycycline Monohydrate [Mondoxyne 100 mg PO BID #14 capsule 01/11/17 Nl] Allergies Allergy/AdvReac Type Severity Reaction Status Date / Time No Known Drug Allergies Allergy Verified 01/11/17 12:07 Travel Screening - Travel/Exposure Within Last 30 Days Have you traveled within the last 30 days?: No - Travel/Exposure Within Last Year Have you traveled outside the [place] in the last year?: No - Additonal Travel Details Have you been exposed to anyone with a communicable illness?: No - Travel Symptoms Symptom Screening: None Review of Systems Constitutional: Denies: Chills, Fever Eyes: Denies: Eye discharge ENT: Denies: Congestion Respiratory: Reports: Cough. Denies: Dyspnea Past Medical History - SOCIAL HISTORY Smoking Status: Former smoker Alcohol Use: None Drug Use: None - RESPIRATORY Hx Respiratory Disorders: Yes Hx Bronchitis: Yes (yrs ago) - CARDIOVASCULAR Hx Cardio Disorders: Yes Hx Hypertension: Yes Comment:: "bad back" - NEURO Hx Neuro Disorders: No Hx Seizures: No - GI Hx GI Disorders: Yes Hx Reflux: Yes Hx Ulcer: Yes (1963) - Hx Genitourinary Disorders: Yes Hx Prostate Problems: Yes (cancer 2002) - ENDOCRINE Hx Endocrine Disorders: No Hx Diabetes: No - MUSCULOSKELETAL Hx Musculoskeletal Disorders: Yes Hx Back Injury: Yes (fell in 2010) Comment:: lumbar deteriation- loss of 4" - PSYCH Hx Psych Problems: No - HEMATOLOGY/ONCOLOGY Hx Hematology/Oncology Disorders: Yes Hx Cancer: Yes Hx Chemotherapy: No Hx Radiation Therapy: Yes Hx Blood Transfusions: Yes Hx Blood Transfusion Reaction: No Comment:: radiation seeds 2003 Family Medical History Any Significant Family History?: Yes Hx Anxiety: Brother/Sister *Anxiety Comment: sister Hx Diabetes: Brother/Sister *Diabetes Comment: sister Physical Exam - General General Appearance: Alert, Oriented x3, Cooperative, No acute distress - Head Head exam: Atraumatic, Normocephalic, Normal inspection - Eye Eye exam: Normal appearance, PERRL - ENT Throat exam: Normal inspection. negative: Tonsillar erythema, Tonsillar exudate - Neck Neck exam: Normal inspection, Full ROM. negative: Tenderness - Respiratory Respiratory exam: Decreased breath sounds. negative: Normal lung sounds bilaterally, Rales, Respiratory distress, Stridor, Wheezes - Cardiovascular Cardiovascular Exam: Regular rate, Normal rhythm, Normal heart sounds - Extremities Extremities exam: Normal inspection, Full ROM, Normal capillary refill. negative: Tenderness - Back Back exam: Reports: Normal inspection, Vertebral tenderness (Mid thoracic spine. ) - Neurological Neurological exam: Alert. negative: Motor sensory deficit Course Vital Signs 01/11/17 11:58 Temperature 98.0 F Pulse Rate 76 Respiratory 20 Rate Blood Pressure 174/110 Pulse Ox 97 - Reevaluation(s) Reevaluation #1: The patient is doing better. He denies any SOB or anterior chest pain. His back pain has pretty much resolved at this time. His CXR does demonstrate a suspicious nodule so we will order a chest CT for further eval. 01/11/17 13:25 Reevaluation #2: The patient is doing very well at this time. He denies any cough, back pain, SOB or RANDA. I did discuss the CT report with him and stressed the need for F/U with his PCP. I also did discuss the case with Dr. Galarza and he is aware of the CT and probable lung malignancy. 01/11/17 14:41 Medical Decision Making - Data Complexity MDM Data: Labs Ordered and/or Reviewed, X-Ray Ordered and/or Reviewed, EKG Ordered and/or Reviewed - Lab Data Result diagrams: 01/11/17 12:20 01/11/17 12:20 - EKG Data -: EKG Interpreted by Me EKG: No Acute Changes, Normal EKG - Radiology Data Radiology results: Report reviewed (CT: 2.6 cm RUL nodule concerning for malignancy. CXR: COPD with possible nodule RUL T Spine: Multiple old compression fx's.) Disposition Disposition: Discharge Clinical Impression: COPD exacerbation Disposition: Home, Self-Care Condition: (2) Stable Instructions: COPD (Chronic Obstructive Pulmonary Disease) (ED) Additional Instructions: Please take the doxycline and Albuterol as directed. Please use Tylenol for pain. Please see Dr. Galarza next week as planned to go over the CT results. Return to the ER for any worsening cough, trouble breathing or shortness of breath. Prescriptions: Albuterol Sulfate [Proair Hfa] 2 puff IH QID PRN #1 inhaler PRN Reason: Cough And Difficulty Breathing Doxycycline Monohydrate [Mondoxyne Nl] 100 mg PO BID #14 capsule Forms: Patient Portal Access Time of Disposition: 14:44 Quality - Quality Measures Quality Measures: N/A - Blood Pressure Screening View Details: Yes Does Patient Have Any of the Following: No, Active Dx of HTN Blood Pressure Classification: Hypertensive Reading Systolic Measurement: 174 Diastolic Measurement: 110 Screening for High Blood Pressure: Patient Exclusion, Hx of HTN [G9744]
[2017-01-11] MEDS ORDERED: ACETAMINOPHEN 325 MG TAB PO ONE (12:38)
[2017-01-11 12:45] LABS: BASO % 0.1 % (0-6); EOS % 1.8 % (0-6); GRAN % 74.3 % (47-80); HEMATOCRIT 39.2 % (42.0-52.0); LYMPH % 14.4 % (16-45); MEAN CELL VOLUME 86.7 fl (81-97); MEAN CORPUSCULAR HGB CONC 33.2 g/dl (32-36); MEAN PLATELET VOLUME 8.9 fl (7.4-10.4); MONO % 9.4 % (0-9); PLATELET COUNT 327 K/uL (130-400); RED BLOOD COUNT 4.52 M/uL (4.40-5.70); RED CELL DISTRIBUTION WIDTH 14.2 % (11.5-14.5); WHITE BLOOD COUNT W/O DIFF 8.8 K/uL (4.2-12.2)
[2017-01-11 12:46] LABS: MEAN CORPUSCULAR HEMOGLOBIN 28.7 pg (27-33)
[2017-01-11 12:50] LABS: BLOOD UREA NITROGEN 10 mg/dL (8-23)
[2017-01-11 12:51] LABS: CREATININE 0.6 mg/dL (0.7-1.2); EST GLOMERULAR FILTRATION RATE > 60 mL/min
[2017-01-11 12:53] LABS: GLUCOSE,RANDOM 120 mg/dL (74-109)
[2017-01-11 12:56] LABS: CREATINE PHOSPHOKINASE 92 U/L (39-308)
[2017-01-11 12:58] LABS: CKMB 3.9 ng/mL (<6.73)
[2017-01-11] MEDS ORDERED: IPRATROPIUM/ALBUTEROL (0.5MG/3MG) NEB INH ONE (13:03)
[2017-01-11] MEDS ORDERED: KETOROLAC 30 MG/ML VIAL IVP ONE (13:03)
--- NOTE | 2017-01-11 21:18 | RADIOLOGY REPORT ---
EXAM: CHEST 2 VIEWS HISTORY: FORMER SMOKER, PRODUCTIVE COUGH FOR ONE MONTH. HISTORY OF STERNAL FRACTURE. COMPARISON: Chest x-ray 12/17/16. TECHNIQUE: Two-view chest. FINDINGS: Advanced emphysema as before. Enlarging right upper lobe nodule measures 2.7 x 1.6 cm in size, previously measuring about 2.4 x 1.4 cm. No pleural effusion. Diffuse slight reticular prominence at the lung bases consistent with chronic interstitial change. Probable small hiatal hernia. Diaphragm is unremarkable. Osteopenia. Two severe osteoporotic compression fractures in the mid to lower thoracic spine, unchanged. There are two additional compression fractures in the lumbar spine, unchanged. Sternal fixation plates are again noted. IMPRESSION: 1. ADVANCED EMPHYSEMA. ENLARGING RIGHT UPPER LOBE NODULE SUSPICIOUS FOR PRIMARY LUNG CANCER. RECOMMEND CHEST CT. 2. CHRONIC INTERSTITIAL CHANGE AT THE LUNG BASES. 3. SMALL HIATAL HERNIA. 4. CHRONIC OSTEOPOROTIC COMPRESSION FRACTURES. JOB NUMBER: [id number] [facility]
--- NOTE | 2017-01-11 21:21 | RADIOLOGY REPORT ---
EXAM: THORACIC SPINE HISTORY: COUGH, MID BACK PAIN. COMPARISON: Chest x-ray 11/18/16. TECHNIQUE: Three-view thoracic spine. FINDINGS: Osteopenia with compromised bone detail. There are two severe chronic wedge deformities in the mid to lower thoracic spine. No new fractures in the thoracic spine. Mild degenerative disc disease in the mid to lower thoracic spine with minimal levoconvex curvature. IMPRESSION: 1. ADVANCED OSTEOPENIA WITH MULTILEVEL DEGENERATIVE DISC DISEASE IN THE THORACIC SPINE. 2. SEVERE CHRONIC OSTEOPOROTIC COMPRESSION DEFORMITIES IN THE MID TO LOWER THORACIC SPINE. NO DEFINITE NEW FRACTURES. J[facility]BER: [id number] [facility]
--- NOTE | 2017-01-11 21:36 | CT SCAN REPORT ---
EXAM: CT SCAN CHEST W CONTRAST HISTORY: PRODUCTIVE COUGH, COPD, ENLARGING LUNG LESION RIGHT UPPER LOBE. COMPARISON: Chest x-ray 01/11/17. TECHNIQUE: Contiguous axial images from the thoracic inlet to the upper abdomen were obtained after the uneventful intravenous administration of 100 mL of Omnipaque-300. FINDINGS: Mild to moderate upper lobe centrilobular emphysema. Some bullous disease in the superior segments of the lower lobes. Spiculated nodule with some central lucency in the right upper lobe abutting the anterior parietal pleura measuring up to 1.8 x 1.5 cm in transverse dimension, by 2.6 cm craniocaudal. Subpleural reticulation and scarring throughout the lungs bilaterally of mild to moderate degree. Calcified granuloma in the right upper lobe medially measures 7 mm. No pleural effusion. Central airways are patent. The heart is mildly enlarged but there is no pericardial effusion. Mild ectasia of the ascending aorta measuring up to 4.1 cm. Mild to moderate calcification of the thoracic aorta. No enlarged lymph nodes in the thorax. Sternal plates present. Upper abdomen demonstrates severe atrophy of the left kidney with prominence of the pelvicaliceal system on the left as well. Chronic severe osteoporotic compression deformities of the L1, T11, and T8 vertebral bodies. Healed sternal fracture. Multiple healed posterior left rib fractures. IMPRESSION: 1. EMPHYSEMA. JUXTAPLEURAL SPICULATED NODULE IN THE RIGHT UPPER LOBE WITH CENTRAL LUCENCY, FOR WHICH PRIMARY MALIGNANCY IS NOT EXCLUDED. RECOMMEND PET CT OR TISSUE DIAGNOSIS. 2. MILD TO MODERATE JUXTAPLEURAL SCARRING THROUGHOUT THE LUNGS BILATERALLY. 3. CARDIOMEGALY WITH MILD ECTASIA OF THE ASCENDING AORTA. 4. CHRONIC OSTEOPOROTIC COMPRESSION FRACTURES IN THE LOWER THORACIC AND UPPER LUMBAR SPINE. JOB NUMBER: [id number] [facility]
== END 2017-01-11 15:01 | disposition home or self-care (01) ==
LOC: ER 11:54
DX: J44.1 Chronic obstructive pulmonary disease with (acute) exacerbation (principal); M54.6 Pain in thoracic spine; Z87.891 Personal history of nicotine dependence; I10 Essential (primary) hypertension
CPT/HCPCS: 71020; 71260; 72072; 80048; 82550; 82553; 84484; 85025; 93005; 93010; 96374; 99284; J1885

== ENCOUNTER 2017-01-16 05:49 | Emergency (ER) | payer MEDICARE, BC ==
--- NOTE | 2017-01-16 06:44 | Emergency Department Record ---
History of Present Illness - General Chief Complaint: Fall Injury Stated Complaint: NAUSEA/FALL W SHOULDER PAIN Time Seen by Provider: 01/16/17 06:25 Source: Patient Mode of Arrival: Wheelchair Limitations: No limitations - History of Present Illness Initial Comments: pt got his feet tangled up in the bed sheets while getting out of bed and fell injuring his r clavicle area. pt denies other injury and loc. MD Complaint: Fall Onset/Timin -: Minutes(s) Fall From: From height (distance) When Fall Occurred: 1-3 hours BENEFITS CONSULTING ANALYST Fall Witnessed: No Place Fall Occurred: Home Loss of Consciousness: None Prolonged Down Time?: No Symptoms Prior to Fall: None Location - Extremities: Right: Shoulder Severity: Mild Severity scale (1-10): 9 - [place] Coma Scale Eye Response: (4) Open spontaneously Motor Response: (6) Obeys commands Verbal Response: (5) Oriented Maria Alejandra Total: 15 - Related Data Previous Rx's Medication Instructions Recorded Amlodipine Besylate [Norvasc] 5 mg PO DAILY #30 tab 06/03/16 Albuterol Sulfate [Proair Hfa] 2 puff IH QID PRN #1 inhaler 01/11/17 Doxycycline Monohydrate [Mondoxyne 100 mg PO BID #14 capsule 01/11/17 Nl] Allergies Allergy/AdvReac Type Severity Reaction Status Date / Time No Known Drug Allergies Allergy Verified 01/11/17 12:07 Travel Screening - Travel/Exposure Within Last 30 Days Have you traveled within the last 30 days?: No - Travel/Exposure Within Last Year Have you traveled outside the [place] in the last year?: No - Additonal Travel Details Have you been exposed to anyone with a communicable illness?: No - Travel Symptoms Symptom Screening: None Review of Systems Reviewed: No additional complaints except as noted below Constitutional: Reports: As per HPI. Denies: Chills, Fever, Malaise, Night sweats, Weakness, Weight change Eyes: Reports: As per HPI. Denies: Eye discharge, Eye pain, Photophobia, Vision change ENT: Reports: As per HPI. Denies: Congestion, Dental pain, Ear pain, Epistaxis , Hearing loss, Throat pain Respiratory: Reports: As per HPI. Denies: Cough, Dyspnea, Hemoptysis, Stridor, Wheezes Cardiovascular: Reports: As per HPI. Denies: Arrhythmia, Chest pain, Dyspnea on exertion, Edema, Murmurs, Orthopnea, Palpitations, Paroxysmal nocturnal dyspnea, Rheumatic Fever, Syncope Endocrine: Reports: As per HPI. Denies: Fatigue, Heat or cold intolerance, Polydipsia, Polyuria Gastrointestinal: Reports: As per HPI. Denies: Abdominal pain, Constipation, Diarrhea, Hematemesis, Hematochezia, Melena, Nausea, Vomiting Genitourinary: Reports: As per HPI. Denies: Dysuria, Frequency, Hematuria, Incontinence, Retention, Testicular pain, Testicular mass, Urgency Musculoskeletal: Reports: As per HPI. Denies: Arthralgia, Back pain, Gout, Joint swelling, Myalgia, Neck pain Skin: Reports: As per HPI. Denies: Bruising, Change in color, Change in hair/ nails, Lesions, Pruritus, Rash Neurological: Reports: As per HPI. Denies: Abnormal gait, Confusion, Headache, Numbness, Paresthesias, Seizure, Tingling, Tremors, Vertigo, Weakness Psychiatric: Reports: As per HPI. Denies: Anxiety, Auditory hallucinations, Depression, Homicidal thoughts, Suicidal thoughts, Visual hallucinations Hematological/Lymphatic: Reports: As per HPI. Denies: Anemia, Blood Clots, Easy bleeding, Easy bruising, Swollen glands Past Medical History - SOCIAL HISTORY Smoking Status: Former smoker - RESPIRATORY Hx Respiratory Disorders: Yes Hx Bronchitis: Yes (yrs ago) - CARDIOVASCULAR Hx Cardio Disorders: Yes Hx Hypertension: Yes Comment:: "bad back" - NEURO Hx Neuro Disorders: No Hx Seizures: No - GI Hx GI Disorders: Yes Hx Reflux: Yes Hx Ulcer: Yes (1963) - Hx Genitourinary Disorders: Yes Hx Prostate Problems: Yes (cancer 2002) - ENDOCRINE Hx Endocrine Disorders: No Hx Diabetes: No - MUSCULOSKELETAL Hx Musculoskeletal Disorders: Yes Hx Back Injury: Yes (fell in 2010) Comment:: lumbar deteriation- loss of 4" - PSYCH Hx Psych Problems: No - HEMATOLOGY/ONCOLOGY Hx Hematology/Oncology Disorders: Yes Hx Cancer: Yes Hx Chemotherapy: No Hx Radiation Therapy: Yes Hx Blood Transfusions: Yes Hx Blood Transfusion Reaction: No Comment:: radiation seeds 2002 Family Medical History Any Significant Family History?: No Hx Anxiety: Brother/Sister *Anxiety Comment: sister Hx Diabetes: Brother/Sister *Diabetes Comment: sister Physical Exam - General General Appearance: Alert, Oriented x3, Cooperative, Mild distress - Head Head exam: Normal inspection - Eye Eye exam: Normal appearance, PERRL, EOMI Pupils: Normal accommodation - ENT ENT exam: Normal exam, Mucous membranes moist, Normal external ear exam, Normal orophraynx Ear exam: Normal external inspection. negative: External canal tenderness Nasal Exam: Normal inspection. negative: Discharge, Sinus tenderness Mouth exam: Normal external inspection, Tongue normal Teeth exam: Normal inspection. negative: Dental caries Throat exam: Normal inspection. negative: Tonsillar erythema, Tonsillar exudate - Neck Neck exam: Normal inspection, Full ROM. negative: Tenderness - Respiratory Respiratory exam: Normal lung sounds bilaterally. negative: Respiratory distress - Cardiovascular Cardiovascular Exam: Regular rate, Normal rhythm, Normal heart sounds - GI/Abdominal GI/Abdominal exam: Soft, Normal bowel sounds. negative: Tenderness - Rectal Rectal exam: Deferred - exam: Deferred - Extremities Extremities exam: Normal capillary refill, Tenderness. negative: Full ROM Image of Full Body: 1 - ecchymosis, tenderness, swelling, abrasion - Back Back exam: Reports: Normal inspection, Full ROM. Denies: Muscle spasm, Rash noted, Tenderness - Neurological Neurological exam: Alert, CN II-XII intact, Normal gait, Oriented X3 - Psychiatric Psychiatric exam: Normal affect, Normal mood - Skin Skin exam: Dry, Intact, Normal color, Warm Course Vital Signs 01/16/17 05:59 Pulse Rate [ 105 H Pulse Ox Probe] Respiratory 20 Rate Blood Pressure 179/119 [Left Arm] Pulse Ox 97 Disposition Disposition: Discharge Clinical Impression: Contusion of right clavicle Qualifiers: Encounter type: initial encounter Qualified Code(s): S40.011A - Contusion of right shoulder, initial encounter Disposition: Home, Self-Care Condition: (1) Good Instructions: Fall Prevention for Older Adults (ED), Contusion in Adults (ED) Additional Instructions: follow up with family doctor. return sooner if worse. keep shoulder elevated. ice to shoulder. wear sling for 3 days Forms: Patient Portal Access Quality - Quality Measures Quality Measures: N/A - Blood Pressure Screening Does Patient Have Any of the Following: Active Dx of HTN Blood Pressure Classification: Hypertensive Reading Systolic Measurement: 179 Diastolic Measurement: 119 Screening for High Blood Pressure: Patient Exclusion, Hx of HTN [G9744]
--- NOTE | 2017-01-16 14:22 | RADIOLOGY REPORT ---
EXAM: CHEST, TWO VIEWS HISTORY: FALL WITH LACERATION INFERIOR TO RIGHT CLAVICLE. TECHNIQUE: Upright PA and lateral views of the chest were obtained. Comparison: Two view chest radiographic examination dated 01/11/17. FINDINGS: The heart is normal in size and the pulmonary vasculature is nondilated. The thoracic aorta is tortuous and atherosclerotic. Bilateral emphysema is redemonstrated with reticular opacity prominence in the periphery of the lungs most pronounced in the bases consistent with chronic interstitial change. There is redemonstration of a mass like opacity at the right mid lung level measuring 2.7 x 1.[address] chest examination dated 01/11/17, this is noted to localize to the anterior inferior aspect of the right upper lobe and is suspicious for malignancy. The lungs and pleural spaces are otherwise clear. Compression deformities of several vertebral bodies appear stable. These include T8, T11, L1 and L2. Fixation hardware is again demonstrated within the sternum. IMPRESSION: 1. NO EVIDENCE OF AN ACUTE INTRATHORACIC PROCESS. 2. CAVITARY MASS REDEMONSTRATED IN THE RIGHT UPPER LOBE AT THE MID LUNG LEVEL MEASURING 2.7 X 1.7 CM SUSPICIOUS FOR MALIGNANCY. 3. BILATERAL EMPHYSEMA. CHRONIC INTERSTITIAL CHANGES IN EACH LUNG MOST PRONOUNCED IN THE BASES. 4. ORTHOPEDIC HARDWARE REDEMONSTRATED WITHIN THE STERNUM. 5. COMPRESSION DEFORMITIES OF MULTIPLE VERTEBRAL BODIES GROSSLY STABLE. JOB NUMBER: [id number] MTDD
--- NOTE | 2017-01-16 14:46 | RADIOLOGY REPORT ---
EXAM: RIGHT CLAVICLE, TWO VIEWS HISTORY: FALL WITH LACERATION INFERIOR TO RIGHT CLAVICLE. PRIOR STERNAL FRACTURE. TECHNIQUE: Two views of the right clavicle were obtained. Comparison: Same day two views of the chest. FINDINGS: There is diffuse osteopenia. No acute fracture nor dislocation is seen. There is redemonstration of an irregularly marginated mass in the right upper lobe at the mid lung level measuring approximately 2.6 x 1.7 cm suspicious for malignancy. Orthopedic hardware redemonstrated within the sternum. Calcified granuloma within the right paratracheal region. IMPRESSION: OSTEOPENIA. NO ACUTE FRACTURE OR DISLOCATION. JOB NUMBER: [id number] MTDD
== END 2017-01-16 07:47 | disposition home or self-care (01) ==
LOC: ER 05:49
DX: S40.011A Contusion of right shoulder, initial encounter (principal); R11.0 Nausea; R93.8 Abnormal findings on diagnostic imaging of other specified body structures; I10 Essential (primary) hypertension; Z87.891 Personal history of nicotine dependence; Y92.009 Unspecified place in unspecified non-institutional (private) residence as the place of occurrence of the external cause
CPT/HCPCS: 71020; 99283; 99284

== ENCOUNTER 2017-02-01 07:44 | Emergency (ER) | payer MEDICARE, BC ==
[2017-02-01] MEDS ORDERED: ALBUTEROL SULFATE (0.083%) 2.5 MG/3 ML NEB INH ONE (08:35)
--- NOTE | 2017-02-01 11:59 | Emergency Department Record ---
History of Present Illness - General Chief Complaint: Cough Stated Complaint: COUGH Time Seen by Provider: 02/01/17 08:23 Source: Patient Mode of Arrival: Wheelchair Limitations: No limitations - History of Present Illness Initial Comments: pt c/o productive cough, green. he also has increased back pain since he had a fall a few weeks ago. Complaint: Cough, Nasal congestion Onset/Timin -: Month(s) Consistency: Constant Associated Symptoms: Cough, Nasal congestion - Related Data Previous Rx's Medication Instructions Recorded Amlodipine Besylate [Norvasc] 5 mg PO DAILY #30 tab 06/03/16 Albuterol Sulfate [Proair Hfa] 2 puff IH QID PRN #1 inhaler 01/11/17 Levofloxacin [Levaquin Tab] 500 mg PO DAILY #7 tab 02/01/17 Allergies Allergy/AdvReac Type Severity Reaction Status Date / Time No Known Drug Allergies Allergy Verified 01/11/17 12:07 Travel Screening - Travel/Exposure Within Last 30 Days Have you traveled within the last 30 days?: No Review of Systems Reviewed: No additional complaints except as noted below Constitutional: Reports: As per HPI. Denies: Chills, Fever, Malaise, Night sweats, Weakness, Weight change Eyes: Reports: As per HPI. Denies: Eye discharge, Eye pain, Photophobia, Vision change ENT: Reports: As per HPI. Denies: Congestion, Dental pain, Ear pain, Epistaxis , Hearing loss, Throat pain Respiratory: Reports: As per HPI. Denies: Cough, Dyspnea, Hemoptysis, Stridor, Wheezes Cardiovascular: Reports: As per HPI. Denies: Arrhythmia, Chest pain, Dyspnea on exertion, Edema, Murmurs, Orthopnea, Palpitations, Paroxysmal nocturnal dyspnea, Rheumatic Fever, Syncope Endocrine: Reports: As per HPI. Denies: Fatigue, Heat or cold intolerance, Polydipsia, Polyuria Gastrointestinal: Reports: As per HPI. Denies: Abdominal pain, Constipation, Diarrhea, Hematemesis, Hematochezia, Melena, Nausea, Vomiting Genitourinary: Reports: As per HPI. Denies: Dysuria, Frequency, Hematuria, Incontinence, Retention, Testicular pain, Testicular mass, Urgency Musculoskeletal: Reports: As per HPI. Denies: Arthralgia, Back pain, Gout, Joint swelling, Myalgia, Neck pain Skin: Reports: As per HPI. Denies: Bruising, Change in color, Change in hair/ nails, Lesions, Pruritus, Rash Neurological: Reports: As per HPI. Denies: Abnormal gait, Confusion, Headache, Numbness, Paresthesias, Seizure, Tingling, Tremors, Vertigo, Weakness Psychiatric: Reports: As per HPI. Denies: Anxiety, Auditory hallucinations, Depression, Homicidal thoughts, Suicidal thoughts, Visual hallucinations Hematological/Lymphatic: Reports: As per HPI. Denies: Anemia, Blood Clots, Easy bleeding, Easy bruising, Swollen glands Past Medical History - SOCIAL HISTORY Smoking Status: Former smoker - RESPIRATORY Hx Respiratory Disorders: Yes Hx Bronchitis: Yes (yrs ago) - CARDIOVASCULAR Hx Cardio Disorders: Yes Hx Hypertension: Yes Comment:: "bad back" - NEURO Hx Neuro Disorders: No Hx Seizures: No - GI Hx GI Disorders: Yes Hx Reflux: Yes Hx Ulcer: Yes (1963) - Hx Genitourinary Disorders: Yes Hx Prostate Problems: Yes (cancer 2002) - ENDOCRINE Hx Endocrine Disorders: No Hx Diabetes: No - MUSCULOSKELETAL Hx Musculoskeletal Disorders: Yes Hx Back Injury: Yes (fell in 2010) Comment:: lumbar deteriation- loss of 4" - PSYCH Hx Psych Problems: No - HEMATOLOGY/ONCOLOGY Hx Hematology/Oncology Disorders: Yes Hx Cancer: Yes Hx Chemotherapy: No Hx Radiation Therapy: Yes Hx Blood Transfusions: Yes Hx Blood Transfusion Reaction: No Comment:: radiation seeds 2002 Family Medical History Any Significant Family History?: Yes Hx Anxiety: Brother/Sister *Anxiety Comment: sister Hx Diabetes: Brother/Sister *Diabetes Comment: sister Physical Exam - General General Appearance: Alert, Oriented x3, Cooperative, Mild distress - Head Head exam: Normal inspection - Eye Eye exam: Normal appearance, PERRL, EOMI Pupils: Normal accommodation - ENT ENT exam: Normal exam, Mucous membranes moist, Normal external ear exam, Normal orophraynx Ear exam: Normal external inspection. negative: External canal tenderness Nasal Exam: Normal inspection. negative: Discharge, Sinus tenderness Mouth exam: Normal external inspection, Tongue normal Teeth exam: Normal inspection. negative: Dental caries Throat exam: Normal inspection. negative: Tonsillar erythema, Tonsillar exudate - Neck Neck exam: Normal inspection, Full ROM. negative: Tenderness - Respiratory Respiratory exam: Normal lung sounds bilaterally. negative: Respiratory distress - Cardiovascular Cardiovascular Exam: Regular rate, Normal rhythm, Normal heart sounds - GI/Abdominal GI/Abdominal exam: Soft, Normal bowel sounds. negative: Tenderness - Rectal Rectal exam: Deferred - exam: Deferred - Extremities Extremities exam: Normal inspection, Full ROM, Normal capillary refill. negative: Tenderness - Back Back exam: Reports: Full ROM, Muscle spasm, Tenderness. Denies: Rash noted - Neurological Neurological exam: Alert, CN II-XII intact, Normal gait, Oriented X3 - Psychiatric Psychiatric exam: Normal affect, Normal mood - Skin Skin exam: Dry, Intact, Normal color, Warm Course Vital Signs 02/01/17 02/01/17 07:47 08:58 Temperature 97.8 F Pulse Rate 103 H 99 H Respiratory 24 19 Rate Blood Pressure 123/95 Pulse Ox 95 95 - Reevaluation(s) Reevaluation #1: 02/01/17 11:55 pts cxr has a stable nodule, no pneumonia.his back xrays show multiple compression fractures, one of which is new since 2012 age indeterminate at L-2. however pt is not tender over L-2. xrays showed poss mets in l iliac crest so ct was ordered. pt has a hx of prostatic ca [id number] and had radiation. he thinks it is in remission. ct shows lytic lesion and poss mass in stomach. 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 return sooner if worse Prescriptions: Levofloxacin [Levaquin Tab] 500 mg PO DAILY #7 tab Quality - Quality Measures Quality Measures: N/A - Blood Pressure Screening Does Patient Have Any of the Following: No, Active Dx of HTN Blood Pressure Classification: Hypertensive Reading Systolic Measurement: 123 Diastolic Measurement: 95 Screening for High Blood Pressure: Patient Exclusion, Hx of HTN [G9744]
--- NOTE | 2017-02-01 19:04 | RADIOLOGY REPORT ---
EXAM: CHEST 2 VIEWS HISTORY: CHEST PAIN. TECHNIQUE: Frontal and lateral views of the chest. COMPARISON: 01/16/17 chest. FINDINGS: The heart size is normal. Atheromatous change thoracic aorta. Osteopenia. COPD. Stable postsurgical changes. 3.0 x 1.8 cm spiculated nodule in the right upper lobe, as before. Fibrotic changes in each lung base. Tiny effusions and/or pleural thickening. Severe compression deformity of the L1 level, as before. Other compression deformities in the thoracic spine, grossly unchanged. IMPRESSION: 1. SEVERE EMPHYSEMATOUS CHANGES. GROSSLY STABLE POSTSURGICAL CHANGES. OSTEOPENIA. MULTIPLE COMPRESSION DEFORMITIES, GROSSLY UNCHANGED. 2. TINY BIBASILAR EFFUSIONS. FIBROTIC CHANGES IN THE LUNG BASES. 3. SPICULATED NODULE RIGHT UPPER LOBE, BEFORE. JOB NUMBER: [id number] MTDD
--- NOTE | 2017-02-01 19:08 | RADIOLOGY REPORT ---
EXAM: LUMBAR SPINE / AP LAT HISTORY: BACK PAIN. TECHNIQUE: Two views lumbar spine. COMPARISON: 01/13/13 lumbar spine. FINDINGS: Severe osteopenia does limit the exam. However, there are compression deformities throughout the lumbar spine, involving the L4, L3, L2, L1 levels. The L2 compression deformity is new from the 2013 exam and age- indeterminate. Severe facet arthropathy with endplate degenerative changes throughout the lumbar spine. Vascular calcifications. A sclerotic appearance to the left ileum, for which metastatic disease is considered. Multiple prostatic seeds are noted. IMPRESSION: 1. OSTEOPENIA. DIFFUSE COMPRESSION DEFORMITIES, WITH THE L2 COMPRESSION DEFORMITY NEW FROM THE 2013 EXAM. 2. FINDINGS HIGHLY SUSPICIOUS FOR OSSEOUS METASTASIS OF THE LEFT ILEUM. DIFFUSE DEGENERATIVE CHANGE. J[facility]BER: [id number] [facility]
--- NOTE | 2017-02-01 19:32 | CT SCAN REPORT ---
EXAM: CT SCAN ABDOMEN/PELVIS WO CONTRAST HISTORY: BACK PAIN. TECHNIQUE: CT abdomen and pelvis performed without oral or IV contrast. This limits evaluation of bowel and solid visceral organs. COMPARISON: None. FINDINGS: Limited evaluation of the lung bases shows severe emphysematous changes. Pleural thickening in the posterior right lung base with minimal adjacent consolidative change. Postsurgical changes of the sternum are noted. Diffuse osteopenia. Compression deformities at multiple levels throughout the lumbar spine. Multiple prostatic seeds are noted. Degenerative change of the hips bilaterally. Expansile mixed lytic and sclerotic changes of the left ileum are present. Findings are concerning for metastatic disease. Findings may be posttraumatic in the appropriate clinical setting. Limited evaluation of the liver, spleen, adrenal glands, pancreas is unremarkable. Bilateral renal cortical thinning/atrophy. There is suggestion of diffuse wall thickening of the stomach with food and debris also in the stomach. Questionable mass involving the stomach. Consider further assessment with endoscopy. Large amount of stool throughout the colon. No free air. Lobulated appearance to the urinary bladder. No free fluid. Appendix not well seen. No pericecal inflammation. Severe left renal cortical thinning and atrophy with little normal remaining parenchyma of the left kidney. Left-sided hydronephrosis and hydroureter with curvilinear calcification associated with the left ureteral wall. IMPRESSION: 1. SUBJECTIVE WALL THICKENING OF THE STOMACH WITH GASTRIC MASS NOT EXCLUDED. CORRELATION WITH ENDOSCOPY RECOMMENDED. 2. PLEURAL THICKENING IN THE POSTERIOR RIGHT LUNG BASE WITH MINOR ADJACENT CONSOLIDATIVE CHANGE. 3. SEVERE LEFT RENAL ATROPHY AND CORTICAL THINNING WITH LEFT-SIDED HYDRONEPHROSIS AND HYDROURETER. 4. MULTIPLE COMPRESSION DEFORMITIES OF THE LUMBAR SPINE. OSTEOPENIA. MIXED LYTIC AND SCLEROTIC CHANGES WITH A SOMEWHAT EXPANSILE APPEARANCE TO THE LEFT ILEUM. METASTATIC DISEASE IS NOT EXCLUDED. [facility] [id number] [facility]
== END 2017-02-01 12:31 | disposition home or self-care (01) ==
LOC: ER 07:44
DX: K31.89 Other diseases of stomach and duodenum (principal); J20.9 Acute bronchitis, unspecified; M54.5 Low back pain; C79.51 Secondary malignant neoplasm of bone; Z85.46 Personal history of malignant neoplasm of prostate; Z87.891 Personal history of nicotine dependence
CPT/HCPCS: 71020; 72100; 74176; 94640; 99283; 99284; J7613

== ENCOUNTER 2018-03-25 15:08 | Emergency (ER) | payer MEDICARE, BC ==
--- NOTE | 2018-03-25 16:00 | Emergency Department Record ---
History of Present Illness - General Chief complaint: Nosebleed/epistaxis Stated complaint: BLOODY NOSE Time Seen by Provider: 03/25/18 15:45 Source: Patient, RN notes reviewed Mode of Arrival: Wheelchair - History of Present Illness Initial comments: patient presents with a nose bleed from the right nostril. the nose bleed started one hour ago and he had a previous nose bleed one week ago. Patient was told by Rosio in Dr. Galarza his lung cancer came back today. Patient said he is not planning to treat his lung cancer. Onset/Timin -: Hour(s) Location: Nose Improves with: None Worsens with: None - Related Data Previous Rx's Medication Instructions Recorded Amlodipine Besylate [Norvasc] 5 mg PO DAILY #30 tab 06/03/16 Albuterol Sulfate [Proair Hfa] 2 puff IH QID PRN #1 inhaler 01/11/17 Levofloxacin [Levaquin Tab] 500 mg PO DAILY #7 tab 02/01/17 Allergies Allergy/AdvReac Type Severity Reaction Status Date / Time No Known Drug Allergies Allergy Verified 03/25/18 15:32 Travel Screening - Travel/Exposure Within Last 30 Days Have you traveled within the last 30 days?: No - Travel/Exposure Within Last Year Have you traveled outside the [place] in the last year?: No - Additonal Travel Details Have you been exposed to anyone with a communicable illness?: No - Travel Symptoms Symptom Screening: None Review of Systems Reviewed: No additional complaints except as noted below Constitutional: Reports: As per HPI. Denies: Chills, Fever, Malaise, Night sweats, Weakness, Weight change Eyes: Reports: As per HPI. Denies: Eye discharge, Eye pain, Photophobia, Vision change ENT: Reports: As per HPI. Denies: Congestion, Dental pain, Ear pain, Epistaxis , Hearing loss, Throat pain Respiratory: Reports: As per HPI. Denies: Cough, Dyspnea, Hemoptysis, Stridor, Wheezes Cardiovascular: Reports: As per HPI. Denies: Arrhythmia, Chest pain, Dyspnea on exertion, Edema, Murmurs, Orthopnea, Palpitations, Paroxysmal nocturnal dyspnea, Rheumatic Fever, Syncope Endocrine: Reports: As per HPI. Denies: Fatigue, Heat or cold intolerance, Polydipsia, Polyuria Gastrointestinal: Reports: As per HPI. Denies: Abdominal pain, Constipation, Diarrhea, Hematemesis, Hematochezia, Melena, Nausea, Vomiting Genitourinary: Reports: As per HPI. Denies: Dysuria, Frequency, Hematuria, Incontinence, Retention, Testicular pain, Testicular mass, Urgency Musculoskeletal: Reports: As per HPI. Denies: Arthralgia, Back pain, Gout, Joint swelling, Myalgia, Neck pain Skin: Reports: As per HPI. Denies: Bruising, Change in color, Change in hair/ nails, Lesions, Pruritus, Rash Neurological: Reports: As per HPI. Denies: Abnormal gait, Confusion, Headache, Numbness, Paresthesias, Seizure, Tingling, Tremors, Vertigo, Weakness Psychiatric: Reports: As per HPI. Denies: Anxiety, Auditory hallucinations, Depression, Homicidal thoughts, Suicidal thoughts, Visual hallucinations Hematological/Lymphatic: Reports: As per HPI. Denies: Anemia, Blood Clots, Easy bleeding, Easy bruising, Swollen glands Past Medical History - SOCIAL HISTORY Smoking Status: Former smoker Alcohol Use: Occasional Alcohol Use Comment: 2 beers a day Drug Use: None - RESPIRATORY Hx Respiratory Disorders: Yes Hx Bronchitis: Yes (yrs ago) - CARDIOVASCULAR Hx Cardio Disorders: Yes Hx Hypertension: Yes Comment:: "bad back" - NEURO Hx Neuro Disorders: No Hx Seizures: No - GI Hx GI Disorders: Yes Hx Reflux: Yes Hx Ulcer: Yes (1963) - Hx Genitourinary Disorders: Yes Hx Prostate Problems: Yes (cancer 2002) - ENDOCRINE Hx Endocrine Disorders: No Hx Diabetes: No - MUSCULOSKELETAL Hx Musculoskeletal Disorders: Yes Hx Back Injury: Yes (fell in 2010) Comment:: lumbar deteriation- loss of 4" - PSYCH Hx Psych Problems: No - HEMATOLOGY/ONCOLOGY Hx Hematology/Oncology Disorders: Yes Hx Cancer: Yes Hx Chemotherapy: No Hx Radiation Therapy: Yes Hx Blood Transfusions: Yes Hx Blood Transfusion Reaction: No Comment:: radiation seeds 2002 Family Medical History Any Significant Family History?: Yes Hx Anxiety: Brother/Sister *Anxiety Comment: sister Hx Diabetes: Brother/Sister *Diabetes Comment: sister Physical Exam - General General Appearance: Alert, Oriented x3, Cooperative, Mild distress - Head Head exam: Normal inspection - Eye Eye exam: Normal appearance, PERRL Pupils: Normal accommodation - ENT ENT exam: Normal exam, Mucous membranes moist, Normal external ear exam, Normal orophraynx, TM's normal bilaterally Ear exam: Normal external inspection. negative: External canal tenderness Nasal Exam: Active bleeding (right nostril anterior ,stopped with clot removal and a nose clip). negative: Discharge, Sinus tenderness Mouth exam: Normal external inspection, Tongue normal Teeth exam: Normal inspection. negative: Dental caries Throat exam: Normal inspection. negative: Tonsillar erythema, Tonsillar exudate - Neck Neck exam: Normal inspection, Full ROM. negative: Tenderness - Respiratory Respiratory exam: Normal lung sounds bilaterally. negative: Respiratory distress - Cardiovascular Cardiovascular Exam: Regular rate, Normal rhythm, Normal heart sounds - GI/Abdominal GI/Abdominal exam: Soft, Normal bowel sounds. negative: Tenderness - Rectal Rectal exam: Deferred - exam: Deferred - Extremities Extremities exam: Normal inspection, Full ROM, Normal capillary refill. negative: Tenderness - Back Back exam: Reports: Normal inspection, Full ROM. Denies: Muscle spasm, Rash noted, Tenderness - Neurological Neurological exam: Alert, Normal gait, Oriented X3, Reflexes normal - Psychiatric Psychiatric exam: Normal affect, Normal mood - Skin Skin exam: Dry, Intact, Normal color, Warm Course - Reevaluation(s) Reevaluation #1: called the office and Rosio just started him on amoxil for his cough and possible pneumonia with lung cancer 03/25/18 16:46 Medical Decision Making - Lab Data Result diagrams: 03/25/18 15:30 03/25/18 15:30 Disposition Clinical Impression: Anterior epistaxis Disposition: Home, Self-Care Condition: (1) Good Instructions: Nosebleed (ED) Additional Instructions: No aspirin , motrin alleve or NSAID you can use tylenol for pain if needed follow up with Rosio or Dr Galarza next week use nose clip for 30 minutes if bleeding restarts or return to the ED use vasoline in the nose to help it heal up Forms: Patient Portal Access Time of Disposition: 16:45 Quality - Quality Measures Quality Measures: N/A - Blunt Head Trauma - Adult ICD10 Codes Entered: No - Blood Pressure Screening Does Patient Have Any of the Following: No, Active Dx of HTN Blood Pressure Classification: Hypertensive Reading Systolic Measurement: 185 Diastolic Measurement: 123 Screening for High Blood Pressure: Patient Exclusion, Hx of HTN [G9744]
[2018-03-25 16:03] LABS: BASO % 0.2 % (0-6); EOS % 1.4 % (0-6); GRAN % 63.2 % (47-80); HEMATOCRIT 37.1 % (42.0-52.0); HEMOGLOBIN 12.4 gm/dl (14.0-18.0); LYMPH % 24.8 % (16-45); MEAN CELL VOLUME 91.8 fl (81-97); MEAN CORPUSCULAR HGB CONC 33.4 g/dl (32-36); MEAN PLATELET VOLUME 8.7 fl (7.4-10.4); MONO % 10.4 % (0-9); PLATELET COUNT 347 K/uL (130-400); RED BLOOD COUNT 4.04 M/uL (4.40-5.70); RED CELL DISTRIBUTION WIDTH 14.6 % (11.5-14.5); WHITE BLOOD COUNT W/O DIFF 6.5 K/uL (4.2-12.2)
[2018-03-25 16:07] LABS: MEAN CORPUSCULAR HEMOGLOBIN 30.6 pg (27-33)
[2018-03-25 16:16] LABS: BLOOD UREA NITROGEN 14 mg/dL (8-23); CREATININE 0.5 mg/dL (0.7-1.2); EST GLOMERULAR FILTRATION RATE > 60 mL/min
[2018-03-25 16:19] LABS: GLUCOSE,RANDOM 108 mg/dL (74-109); PARTIAL THROMBOPLASTIN TIME 27.5 SECONDS (24.5-39.1); PROTHROMBIN TIME (PATIENT) 10.1 SECONDS (9.5-12.1)
== END 2018-03-25 17:28 | disposition home or self-care (01) ==
LOC: ER 15:08
DX: R04.0 Epistaxis (principal); R05 Cough; C34.90 Malignant neoplasm of unspecified part of unspecified bronchus or lung; I10 Essential (primary) hypertension; Z87.891 Personal history of nicotine dependence
CPT/HCPCS: 80048; 85025; 85610; 85730; 99283; 99284

== ENCOUNTER 2018-04-19 04:44 | Inpatient (IN) | payer MEDICARE, BC ==
[2018-04-19] MEDS ORDERED: METHYLPREDNISOLONE PF 125MG/VIAL IVP ONE (04:59)
[2018-04-19] MEDS ORDERED: IPRATROPIUM/ALBUTEROL (0.5MG/3MG) NEB INH ONE (05:00)
[2018-04-19 05:02] LABS: BASO % 0.2 % (0-6); EOS % 1.9 % (0-6); GRAN % 52.7 % (47-80); HEMATOCRIT 38.5 % (42.0-52.0); HEMOGLOBIN 12.7 gm/dl (14.0-18.0); LYMPH % 33.4 % (16-45); MEAN CELL VOLUME 89.3 fl (81-97); MEAN CORPUSCULAR HEMOGLOBIN 29.4 pg (27-33); MEAN PLATELET VOLUME 8.1 fl (7.4-10.4); MONO % 11.8 % (0-9); PLATELET COUNT 309 K/uL (130-400); RED BLOOD COUNT 4.31 M/uL (4.40-5.70); RED CELL DISTRIBUTION WIDTH 13.8 % (11.5-14.5); WHITE BLOOD COUNT W/O DIFF 6.4 K/uL (4.2-12.2)
--- NOTE | 2018-04-19 05:05 | Emergency Department Record ---
History of Present Illness - General Chief Complaint: Shortness of breath Time Seen by Provider: 04/19/18 04:55 Source: Patient, Family Mode of Arrival: Ambulatory Limitations: No limitations - History of Present Illness Initial Comments: 83 yo male presents to ED for evaluation of RANDA this morning, family reports a history of COPD. Family denies recent illness, fevers, chills, or productive cough symptoms. Patient denies chest discomfort, denies lower extremity edema. Family denies health problems other than COPD and "lung cancer" that is being observed at this time, patient is DNR. MD Complaint: Shortness of breath Onset/Timin -: Minutes(s) Severity: Moderate Consistency: Constant Improves With: Nothing Worsens With: Exertion Known History Of: COPD Context: Occurred during exertion Treatments Prior to Arrival: None - Related Data Home Oxygen Therapy: No Home Medications Medication Instructions Recorded Confirmed Last Taken Budesonide/Formoterol Fumarate 6 gm IH DAILY 04/19/18 04/19/18 Unknown [Symbicort 160-4.5 Mcg Inhaler] Previous Rx's Medication Instructions Recorded Amlodipine Besylate [Norvasc] 5 mg PO DAILY #30 tab 06/03/16 Albuterol Sulfate [Proair Hfa] 2 puff IH QID PRN #1 inhaler 01/11/17 Levofloxacin [Levaquin Tab] 500 mg PO DAILY #7 tab 02/01/17 Allergies Allergy/AdvReac Type Severity Reaction Status Date / Time No Known Drug Allergies Allergy Verified 03/25/18 15:32 Travel Screening - Travel/Exposure Within Last 30 Days Have you traveled within the last 30 days?: No - Travel Symptoms Symptom Screening: None Review of Systems Constitutional: Denies: Chills, Fever, Malaise, Night sweats Eyes: Denies: Eye discharge, Eye pain ENT: Denies: Congestion, Ear pain Respiratory: Reports: Dyspnea. Denies: Cough Cardiovascular: Reports: Dyspnea on exertion. Denies: Chest pain, Edema, Palpitations Endocrine: Denies: Fatigue, Heat or cold intolerance Gastrointestinal: Denies: Abdominal pain, Nausea, Vomiting Genitourinary: Denies: Incontinence, Retention Musculoskeletal: Denies: Arthralgia, Back pain Skin: Denies: Bruising, Change in color Neurological: Denies: Abnormal gait, Confusion, Headache, Seizure Psychiatric: Denies: Anxiety Hematological/Lymphatic: Denies: Anemia, Blood Clots Past Medical History - SOCIAL HISTORY Smoking Status: Former smoker Alcohol Use: None Drug Use: None - RESPIRATORY Hx Respiratory Disorders: Yes Hx Bronchitis: Yes (yrs ago) Hx COPD: Yes - CARDIOVASCULAR Hx Cardio Disorders: Yes Hx Hypertension: Yes Comment:: "bad back" - NEURO Hx Neuro Disorders: No Hx Seizures: No - GI Hx GI Disorders: Yes Hx Reflux: Yes Hx Ulcer: Yes (1963) - Hx Genitourinary Disorders: Yes Hx Prostate Problems: Yes (cancer 2002) - ENDOCRINE Hx Endocrine Disorders: No Hx Diabetes: No - MUSCULOSKELETAL Hx Musculoskeletal Disorders: Yes Hx Back Injury: Yes (fell in 2010) Comment:: lumbar deteriation- loss of 4" - PSYCH Hx Psych Problems: No - HEMATOLOGY/ONCOLOGY Hx Hematology/Oncology Disorders: Yes Hx Cancer: Yes Hx Chemotherapy: No Hx Radiation Therapy: Yes Hx Blood Transfusions: Yes Hx Blood Transfusion Reaction: No Comment:: radiation seeds 2002 Family Medical History Any Significant Family History?: Yes Hx Anxiety: Brother/Sister *Anxiety Comment: sister Hx Diabetes: Brother/Sister *Diabetes Comment: sister Physical Exam - General General Appearance: Alert, Oriented x3, Cooperative, Moderate distress Limitations: No limitations - Head Head exam: Atraumatic, Normocephalic, Normal inspection Head exam detail: negative: Abrasion, Contusion, Almaguer's sign, General tenderness, Hematoma, Laceration - Eye Eye exam: Normal appearance. negative: Conjunctival injection, Periorbital swelling, Periorbital tenderness, Scleral icterus - ENT Ear exam: negative: Auricular hematoma, Auricular trauma Nasal Exam: negative: Active bleeding, Discharge, Dried blood, Foreign body Mouth exam: negative: Drooling, Laceration, Muffled voice, Tongue elevation - Neck Neck exam: Normal inspection. negative: Meningismus, Tenderness - Respiratory Respiratory exam: Decreased breath sounds, Respiratory distress. negative: Rales, Rhonchi, Stridor - Cardiovascular Cardiovascular Exam: Regular rate, Normal rhythm, Normal heart sounds - GI/Abdominal GI/Abdominal exam: Soft. negative: Rebound, Rigid, Tenderness - Rectal Rectal exam: Deferred - exam: Deferred - Extremities Extremities exam: Normal inspection. negative: Pedal edema, Tenderness - Back Back exam: Denies: CVA tenderness (R), CVA tenderness (L) - Neurological Neurological exam: Alert, Normal gait, Oriented X3 - Psychiatric Psychiatric exam: Normal affect, Normal mood - Skin Skin exam: Normal color. negative: Abrasion Type of lesion: negative: abrasion Course Vital Signs 04/19/18 04/19/18 04:45 04:57 Temperature 97.6 F Pulse Rate 91 H Respiratory 42 H Rate Blood Pressure 152/114 Pulse Ox 88 L - Reevaluation(s) Reevaluation #1: 04/19/18 05:03 EKG: NSR 78 LAD, irregular R-R intervals Non specific ST-T wave changes Reevaluation #2: 04/19/18 05:23 CXR: Masses to RUL, RML Chronic changes Laboratory studies were reviewed and are grossly unremarkable except for potassium level 3.0. Labs are otherwise grossly unremarkable for an acute process. Patient and family were updated on all results, will admit for further evaluation. Reevaluation #3: 04/19/18 06:50 Case was discussed with Bria Rose [employer], will accept admission at this time. Medical Decision Making - Lab Data Result diagrams: 04/19/18 05:00 04/19/18 05:00 Critical Care Time Critical Care Time: Yes Total Critical Care Time: 35 Critical Care Time: Diagnosis and treatment of COPD, initiation of Bipap, frequent reassessments and updates to the patient/family, EKG interpretation. Disposition Disposition: Admit Clinical Impression: Hypoxia, Mass of right lung COPD (chronic obstructive pulmonary disease) Qualifiers: COPD type: unspecified COPD Qualified Code(s): J44.9 - Chronic obstructive pulmonary disease, unspecified Disposition: Still a Patient at [facility] Decision to Admit: Admit from ER Decision to Admit Date: 04/19/18 Decision to Admit Time: 05:27 Condition: (3) Guarded Time of Disposition: 05:27 Quality - Quality Measures Quality Measures: N/A - Blood Pressure Screening Does Patient Have Any of the Following: Active Dx of HTN Blood Pressure Classification: Hypertensive Reading Systolic Measurement: 152 Diastolic Measurement: 114 Screening for High Blood Pressure: Patient Exclusion, Hx of HTN [[id number]]
[2018-04-19 05:12] LABS: BLOOD UREA NITROGEN 9 mg/dL (8-23); CREATININE 0.6 mg/dL (0.7-1.2); EST GLOMERULAR FILTRATION RATE > 60 mL/min
[2018-04-19 05:13] LABS: TOTAL PROTEIN 7.2 g/dL (6.6-8.7)
[2018-04-19 05:15] LABS: GLUCOSE,RANDOM 95 mg/dL (74-109)
[2018-04-19 05:17] LABS: ALT/SGPT 13 U/L (<41)
[2018-04-19 05:18] LABS: ALB/GLOB RATIO 1.7 (1.1-1.8); ALBUMIN 4.5 g/dL (4.0-5.0); ALKALINE PHOSPHATASE 93 U/L (40-129); AST/SGOT 23 U/L (10.0-50.0)
[2018-04-19] MEDS ORDERED: SOD CHLOR 0.9% WITH KCL 40MEQ 40 MEQ/1,000 ML IV.SOLN IV ONE (05:29)
[2018-04-19] MEDS ORDERED: ALBUTEROL SULFATE (0.083%) 2.5 MG/3 ML NEB INH PRN (06:02)
[2018-04-19] MEDS: IPRATROPIUM/ALBUTEROL (0.5MG/3MG) NEB INH SCH ×2 (06:40→09:52)
[2018-04-19] MEDS: PANTOPRAZOLE SODIUM 40 MG TABLET PO SCH (07:52)
[2018-04-19] MEDS: AMLODIPINE BESYLATE 5MG TAB PO SCH ×2 (10:06→10:15)
[2018-04-19] MEDS: METHYLPREDNISOLONE PF 125MG/VIAL IVP SCH (10:06)
[2018-04-19] MEDS: MAGNESIUM OXIDE 400 MG TABLET PO SCH (10:06)
[2018-04-19] MEDS: BREO (FLUTICASONE/VILANTEROL) 200MCG/25MCG INHALER INH SCH ×2 (10:08→10:29)
[2018-04-19] MEDS: LOPERAMIDE 2 MG CAPSULE PO PRN ×2 (12:08→14:09)
[2018-04-19] MEDS ORDERED: IPRATROPIUM/ALBUTEROL (0.5MG/3MG) NEB INH PRN (14:23)
--- NOTE | 2018-04-19 19:07 | History & Physical ---
History of Present Illness - Date of Service Date of Service for History & Physical: 04/19/18 - History of Present Illness Admitting Diagnosis: COPD exacerbation. Hypoxia. Respiratory failure. Hypokalemia History of Present Illness: Tom Higginbotham is an 83 y/o male brought to ED after waking up from sleep having difficulty breathing. He was in his usual state of health prior to going to bed the night before, no recent illness, fever, cough, RANDA, chest pain. Denies history of KONG or having a similar episode happen before. Past medical history includes COPD, former smoker, HTN, GERD, peptic ulcer 1963, prostate cancer 2002 s/p seed radiation, chronic low back pain. Of note, he was diagnosed with right upper lobe lung mass evident on chest x-ray beginning and has chosen not to have any further work up. Is waiting for admission to [facility] to live his remaining years. Upon arrival to ED his SPO2 RA 72% and RR 40- at that time he was placed on BiPAP. EKG NSR with LAD and irregular R-R interval, non specific ST-T wav changes, CXR shows masses to RUL and RML, CBC 6.4, Hgb 12.7, Na 130, Cl 85, BUN/ Cr 9/0.6, troponin <0.010. Potassium 40mEq IV initiated in ED for replacement. Soon after application of BiPAP respiratory distress was significantly improved and was transferred to the floor in stable condition, SPO2 92% on room air. 04/19/18: Resting in bed, in no respiratory distress and on room air. He denies any RANDA, chest pain, discomfort. Is reporting diarrhea in which he states he has every day from drinking beer. Son at bedside. Son has been living with him for the past couple weeks preparing for his move into [facility] 04/27/18. He otherwise has been living alone. He has surrendered his drivers license already and is not homebound. Son confirms the recent finding of RUL lung mass in October 2017 in which his Dad has refused any work up or treatment. Is also aware of new finding of RML mass on CXR done in ED. Travel Screening - Travel/Exposure Within Last 30 Days Have you traveled within the last 30 days?: No - Travel Symptoms Symptom Screening: None Review of Systems Constitutional: Denies: Chills, Fever, Malaise, Night sweats Eyes: Denies: Eye discharge, Eye pain ENT: Denies: Congestion, Ear pain Respiratory: Denies: Cough, Dyspnea Cardiovascular: Denies: Chest pain, Dyspnea on exertion, Edema, Palpitations Endocrine: Denies: Fatigue, Heat or cold intolerance Gastrointestinal: Denies: Abdominal pain, Nausea, Vomiting Genitourinary: Denies: Incontinence, Retention Musculoskeletal: Denies: Arthralgia, Back pain Skin: Denies: Bruising, Change in color Neurological: Denies: Abnormal gait, Confusion, Headache, Seizure Psychiatric: Denies: Anxiety Hematological/Lymphatic: Denies: Anemia, Blood Clots Past Medical History - SOCIAL HISTORY Smoking Status: Former smoker Alcohol Use: None Drug Use: None - RESPIRATORY Hx Respiratory Disorders: Yes Hx Bronchitis: Yes (yrs ago) Hx COPD: Yes - CARDIOVASCULAR Hx Cardio Disorders: Yes Hx Hypertension: Yes Comment:: "bad back" - NEURO Hx Neuro Disorders: No Hx Seizures: No - GI Hx GI Disorders: Yes Hx Reflux: Yes Hx Ulcer: Yes (1963) - Hx Genitourinary Disorders: Yes Hx Prostate Problems: Yes (cancer 2002) - ENDOCRINE Hx Endocrine Disorders: No Hx Diabetes: No - MUSCULOSKELETAL Hx Musculoskeletal Disorders: Yes Hx Back Injury: Yes (fell in 2010) Comment:: lumbar deteriation- loss of 4" - PSYCH Hx Psych Problems: No - HEMATOLOGY/ONCOLOGY Hx Hematology/Oncology Disorders: Yes Hx Cancer: Yes Hx Chemotherapy: No Hx Radiation Therapy: Yes Hx Blood Transfusions: Yes Hx Blood Transfusion Reaction: No Comment:: radiation seeds 2002 Family Medical History Any Significant Family History?: Yes Hx Anxiety: Brother/Sister *Anxiety Comment: sister Hx Diabetes: Brother/Sister *Diabetes Comment: sister H&P Meds/Allergies - Allergies Allergies: Allergies Allergy/AdvReac Type Severity Reaction Status Date / Time No Known Drug Allergies Allergy Verified 03/25/18 15:32 - Home Medications Home Medications Medication Instructions Recorded Confirmed Last Taken Budesonide/Formoterol Fumarate 6 gm IH DAILY 04/19/18 04/19/18 Unknown [Symbicort 160-4.5 Mcg Inhaler] Previous Rx's Medication Instructions Recorded Amlodipine Besylate [Norvasc] 5 mg PO DAILY #30 tab 06/03/16 Albuterol Sulfate [Proair Hfa] 2 puff IH QID PRN #1 inhaler 01/11/17 Levofloxacin [Levaquin Tab] 500 mg PO DAILY #7 tab 02/01/17 - Active Medications Active Medications: Current Medications Albuterol Sulfate (Albuterol Sulfate) 2.5 mg INH RESP.Q2H PRN PRN Reason: DIFFICULTY IN BREATHING Albuterol/Ipratropium (Duoneb) 3 ml INH RESP.Q4H PRN PRN Reason: WHEEZING Amlodipine Besylate (Norvasc) 5 mg PO DAILY [facility] Last Admin: 04/19/18 10:15 Dose: Not Given Loperamide HCl (Immodium) 2 mg PO Q4H PRN PRN Reason: DIARRHEA Last Admin: 04/19/18 14:09 Dose: 2 mg Magnesium Oxide (Mag Ox) 400 mg PO DAILY [facility] Last Admin: 04/19/18 10:06 Dose: 400 mg Methylprednisolone Sodium Succinate (Solu-Medrol) 125 mg IVP DAILY [facility] Last Admin: 04/19/18 10:06 Dose: 125 mg Pantoprazole Sodium (Protonix) 40 mg PO DAILYAC [facility] Last Admin: 04/19/18 07:52 Dose: 40 mg Physical Exam - Vital Signs Vital Signs: Vital Signs - Last 24 Hrs Temp Pulse Pulse Pulse Resp BP BP 04/19/18 16:00 98.1 F 85 18 04/19/18 12:00 98.4 F 102 H 20 04/19/18 10:09 94 H 20 04/19/18 08:26 88 16 04/19/18 08:00 97.9 F 85 20 99/63 04/19/18 06:51 87 18 04/19/18 06:00 97.6 F 61 32 H 140/82 04/19/18 05:55 96 H 133/97 04/19/18 05:25 100 H 18 157/104 04/19/18 05:18 88 16 04/19/18 04:57 97.6 F 04/19/18 04:45 91 H 42 H 152/114 BP Pulse Ox 04/19/18 16:00 138/85 94 L 04/19/18 12:00 131/77 97 04/19/18 10:09 94 L 04/19/18 08:26 98 04/19/18 08:00 94 L 04/19/18 06:51 04/19/18 06:00 97 04/19/18 05:55 97 04/19/18 05:25 96 04/19/18 05:18 97 04/19/18 04:57 04/19/18 04:45 72 L - General General Appearance: Alert, Oriented x3, Cooperative, Other (very YOMBA SHOSHONE) Limitations: No limitations - Head Head exam: Atraumatic, Normocephalic, Normal inspection Head exam detail: negative: Abrasion, Contusion, Almaguer's sign, General tenderness, Hematoma, Laceration - Eye Eye exam: Normal appearance. negative: Conjunctival injection, Periorbital swelling, Periorbital tenderness, Scleral icterus - ENT Ear exam: negative: Auricular hematoma, Auricular trauma Nasal Exam: negative: Active bleeding, Discharge, Dried blood, Foreign body Mouth exam: negative: Drooling, Laceration, Muffled voice, Tongue elevation - Neck Neck exam: Normal inspection. negative: Meningismus, Tenderness - Respiratory Respiratory exam: Decreased breath sounds. negative: Rales, Respiratory distress, Rhonchi, Stridor - Cardiovascular Cardiovascular Exam: Regular rate, Normal rhythm, Normal heart sounds Peripheral Pulses: 2+: Dorsalis Pedis (R), Dorsalis Pedis (L) - GI/Abdominal GI/Abdominal exam: Soft. negative: Rebound, Rigid, Tenderness - Rectal Rectal exam: Deferred - exam: Deferred - Extremities Extremities exam: Normal inspection. negative: Pedal edema, Tenderness - Back Back exam: Denies: CVA tenderness (R), CVA tenderness (L) - Neurological Neurological exam: Alert, Normal gait, Oriented X3 - Psychiatric Psychiatric exam: Normal affect, Normal mood - Skin Skin exam: Normal color. negative: Abrasion Type of lesion: negative: abrasion Results - Labs Result Diagrams: 04/19/18 05:00 04/19/18 05:00 Labs Last 24 Hours: Laboratory Results - last 24 hr 04/19/18 04/19/18 04/19/18 05:00 05:00 09:45 WBC 6.4 RBC 4.31 L Hgb 12.7 L Hct 38.5 L MCV 89.3 MCH 29.4 MCHC 33.0 RDW 13.8 Plt Count 309 MPV 8.1 Gran % 52.7 Lymphocytes % 33.4 Monocytes % 11.8 H Eosinophils % 1.9 Basophils % 0.2 D-Dimer Sodium 130 L Potassium 3.0 L Chloride 85 L Carbon Dioxide 29.0 Anion Gap 16.0 BUN 9 Creatinine 0.6 L Estimated GFR > 60 Random Glucose 95 Calcium 7.6 L Total Bilirubin 0.60 AST 23 ALT 13 Alkaline Phosphatase 93 Troponin T < 0.010 Total Protein 7.2 Albumin 4.5 Globulin 2.7 Albumin/Globulin Ratio 1.7 Procalcitonin 0.058 04/19/18 04/19/18 12:41 16:40 WBC RBC Hgb Hct MCV MCH MCHC RDW Plt Count MPV Gran % Lymphocytes % Monocytes % Eosinophils % Basophils % D-Dimer 0.51 Sodium Potassium Chloride Carbon Dioxide Anion Gap BUN Creatinine Estimated GFR Random Glucose Calcium Total Bilirubin AST ALT Alkaline Phosphatase Troponin T Total Protein Albumin Globulin Albumin/Globulin Ratio Procalcitonin 0.049 - Imaging and Cardiology Chest x-ray Status: Report reviewed (RUL and RML opacity, suspicious for malignancy, no acute process) VTE H&P Assessment - Risk for VTE Risk for VTE: Yes Risk Level: Moderate Risk Assessment Date: 04/19/18 Risk Assessment Time: 19:34 VTE Orders Placed or Will Be Placed: Yes Plan - Inpatient Certification Inpatient Certification: Admit to inpatient care: Based on my medical assessment, after consideration of patient's risk factors (age, co-morbidities and patient presenting symptoms and acuity), I expect that this patient will remain in the hospital greater than or equal to two midnights and that the services needed warrant inpatient care because: Patient Risk Factors: [advanced age, BiPAP use in ED] Estimated length of stay: [48-72 hours] The patient may reasonably be expected to be discharged or transferred to a hospital within 96 hours after admission to [facility]. Services needed: [Nursing, case management] Post hospital care (if known): [] I certify that my determination is in accordance with my understanding of Medicare requirements for reasonable and necessary inpatient services. 04/19/18 19:35 - Detailed Diagnosis and Plan (1) COPD (chronic obstructive pulmonary disease) Current Visit: Yes Status: Acute Qualifiers: COPD type: unspecified COPD Qualified Code(s): J44.9 - Chronic obstructive pulmonary disease, unspecified Base Code: J44.9 - CHRONIC OBSTRUCTIVE PULMONARY DISEASE, UNSPECIFIED Comment : 04/19/18 - Chronic, former smoker - BiPap in ED for respiratory failure, no longer requiring - Procalcitonin 0.058-->0.049, recheck in 24 hours, will hold antibiotics - O2 to keep SPO2 88-92% - Albuterol Q2 prn, Duoneb Q4 ATC - Solumedrol 125mg IV QD (2) Hypoxia Current Visit: Yes Status: Acute Base Code: R09.02 - HYPOXEMIA Comment: 11/28 - Troponin <0.010 - D-dimer 0.59 - Unclear of etiology but does have comorbid conditions (right lung masses, COPD ) - CXR RUL and RML mass, suspicious for malignancy, patient desires not work up or treatment - Has been tolerating room air oxygen since arrival to the floor - Is not a candidate for bronchoscopy or will likely benefit from pulmonology consult (3) Hypokalemia Current Visit: No Status: Acute Base Code: E87.6 - HYPOKALEMIA Comment: 11/28 - Potassium 3.0 in ED, likely from chronic diarrhea - Potassium 40 mEq IV over 8 hours - Immodium as needed - BMP in am (4) Mass of right lung Current Visit: Yes Status: Acute Base Code: R91.8 - OTHER NONSPECIFIC ABNORMAL FINDING OF LUNG FIELD Comment: 04/19/18 - As above - Son is to call [facility] to see about an earlier admission due to decompensation - He desires no treatment or work up - Potential hospice referral - Case management (5) DVT prophylaxis Current Visit: Yes Status: Acute Base Code: [id number] - Comment: 04/19/18 - nursing to encourge ambulation - will initation VTE prophylaxis with Lovenox should he remain admitted after 24 hours (6) DNR (do not resuscitate) Current Visit: Yes Status: Acute Base Code: Z66 - DO NOT RESUSCITATE Comment: 04/19/18
[2018-04-20 06:39] LABS: GRAN % 72.8 % (47-80); HEMOGLOBIN 9.6 gm/dl (14.0-18.0); LYMPH % 15.7 % (16-45); MEAN CELL VOLUME 90.4 fl (81-97); MEAN CORPUSCULAR HEMOGLOBIN 28.9 pg (27-33); MEAN PLATELET VOLUME 8.3 fl (7.4-10.4); MONO % 11.5 % (0-9); PLATELET COUNT 251 K/uL (130-400); RED BLOOD COUNT 3.32 M/uL (4.40-5.70); RED CELL DISTRIBUTION WIDTH 13.9 % (11.5-14.5); WHITE BLOOD COUNT W/O DIFF 7.1 K/uL (4.2-12.2)
[2018-04-20] MEDS: BREO (FLUTICASONE/VILANTEROL) 200MCG/25MCG INHALER INH SCH ×2 (06:56→10:10)
[2018-04-20 06:58] LABS: BLOOD UREA NITROGEN 11 mg/dL (8-23); CREATININE 0.5 mg/dL (0.7-1.2); EST GLOMERULAR FILTRATION RATE > 60 mL/min; GLUCOSE,RANDOM 90 mg/dL (74-109)
[2018-04-20] MEDS: PANTOPRAZOLE SODIUM 40 MG TABLET PO SCH (07:15)
--- NOTE | 2018-04-20 07:33 | RADIOLOGY REPORT ---
EXAM: PORTABLE AP UPRIGHT CHEST HISTORY: DYSPNEA. TECHNIQUE: A portable AP upright view of the chest was obtained. Comparison: 04/08/18. FINDINGS: Previous sternotomy. The cardiomediastinal silhouette is unchanged. Redemonstration of a mass like opacity within the right upper lobe measuring approximately 5.5 x 4 cm. Satellite nodule is partially obscured at this time. There are coarse interstitial markings throughout the lungs likely related to scarring/fibrosis. Slight blunting of the right CP angle may relate to pleural fluid or pleural parenchymal scarring. The left lung is grossly clear. IMPRESSION: 1. OVERALL STABLE CHEST DEMONSTRATING A MASS LIKE OPACITY IN THE RIGHT MID LUNG MEASURING APPROXIMATELY 5.5 X 4 CM. SATELLITE NODULE NOT WELL SEEN ON CURRENT EXAM. 2. SIMILAR COARSENED INTERSTITIAL MARKINGS THROUGHOUT PROBABLY REFLECTING SCARRING/FIBROSIS. 3. BLUNTING OF THE RIGHT CP ANGLE. JOB NUMBER: [id number] MTDD
[2018-04-20] MEDS: AMLODIPINE BESYLATE 5MG TAB PO SCH (09:21)
[2018-04-20] MEDS: METHYLPREDNISOLONE PF 125MG/VIAL IVP SCH (09:21)
[2018-04-20] MEDS: MAGNESIUM OXIDE 400 MG TABLET PO SCH (09:21)
[2018-04-20] MEDS: LOPERAMIDE 2 MG CAPSULE PO PRN (10:26)
--- NOTE | 2018-04-20 12:10 | Discharge Summary ---
Providers Discharge Summary Date: 04/20/18 Date of admission: 04/19/18 05:42 Attending physician: EMIL MOORE Primary care physician: Ramiro Galarza Physical Exam - Vital Signs Vital Signs: Vital Signs - Last 24 Hrs Temp Pulse Pulse Pulse Resp BP Pulse Ox 04/20/18 10:15 58 L 18 100 04/20/18 10:13 58 L 18 100 04/20/18 08:21 120 H 28 H 04/20/18 08:00 98.2 F 82 18 138/79 95 04/20/18 04:00 97.7 F 81 24 149/90 98 04/19/18 21:00 85 04/19/18 20:00 97.7 F 77 24 128/66 94 L 04/19/18 16:00 98.1 F 85 18 138/85 94 L - General General Appearance: Alert, Oriented x3, Cooperative, Other (very [place]) Limitations: No limitations - Head Head exam: Atraumatic, Normocephalic, Normal inspection Head exam detail: negative: Abrasion, Contusion, Almaguer's sign, General tenderness, Hematoma, Laceration - Eye Eye exam: Normal appearance. negative: Conjunctival injection, Periorbital swelling, Periorbital tenderness, Scleral icterus - ENT Ear exam: negative: Auricular hematoma, Auricular trauma Nasal Exam: negative: Active bleeding, Discharge, Dried blood, Foreign body Mouth exam: negative: Drooling, Laceration, Muffled voice, Tongue elevation - Neck Neck exam: Normal inspection. negative: Meningismus, Tenderness - Respiratory Respiratory exam: Decreased breath sounds. negative: Rales, Respiratory distress, Rhonchi, Stridor - Cardiovascular Cardiovascular Exam: Regular rate, Normal rhythm, Normal heart sounds Peripheral Pulses: 2+: Dorsalis Pedis (R), Dorsalis Pedis (L) - GI/Abdominal GI/Abdominal exam: Soft. negative: Rebound, Rigid, Tenderness - Rectal Rectal exam: Deferred - exam: Deferred - Extremities Extremities exam: Normal inspection. negative: Pedal edema, Tenderness - Back Back exam: Denies: CVA tenderness (R), CVA tenderness (L) - Neurological Neurological exam: Alert, Normal gait, Oriented X3 - Psychiatric Psychiatric exam: Normal affect, Normal mood - Skin Skin exam: Normal color. negative: Abrasion Type of lesion: negative: abrasion Hospitalization - Hospitalization Admission Diagnosis: COPD exacerbation. Hypoxia. Respiratory failure. Hypokalemia - Problem List/Discharge Diagnosis (1) COPD (chronic obstructive pulmonary disease) Current Visit: Yes Status: Acute Discharge Diagnosis: COPD type: unspecified COPD Qualified Code(s): J44.9 - Chronic obstructive pulmonary disease, unspecified Base Code: J44.9 - CHRONIC OBSTRUCTIVE PULMONARY DISEASE, UNSPECIFIED Comment : 04/20/18 - Chronic, former smoker - BiPap in ED for respiratory failure, no longer requiring - Procalcitonin 0.058-->0.049-->0.033 - Remained on RA for inpatient stay SPO2>88%, no home O2 needs at this point - Resume home COPD meds - Prednisone BID x 5 days - Family to consider transition to hospice after he is moved to [facility] (2) Hypoxia Current Visit: Yes Status: Acute Base Code: R09.02 - HYPOXEMIA Comment: 12/29 - Troponin <0.010 - D-dimer 0.59 - Unclear of etiology but does have comorbid conditions (right lung masses, COPD ) - CXR RUL and RML mass, suspicious for malignancy, patient desires not work up or treatment - Has been tolerating room air oxygen since arrival to the floor - Is not a candidate for bronchoscopy or will likely benefit from pulmonology consult (3) Hypokalemia Current Visit: No Status: Inactive Base Code: E87.6 - HYPOKALEMIA Comment : 04/20/18 - Potassium 3.0 in ED--> 3.3 after potassium 40mEq IV replacement - Likely from chronic diarrhea - Immodium as needed - Discharge with Potassium 10mEq BID - Follow up with PCP in am as scheduled (4) Mass of right lung Current Visit: Yes Status: Acute Base Code: R91.8 - OTHER NONSPECIFIC ABNORMAL FINDING OF LUNG FIELD Comment: 04/20/18 - As above - He desires no treatment or work up - Potential hospice referral after moving to [facility] - Home care to be set up at time of discharge until he is moved to [facility] (5) DVT prophylaxis Current Visit: Yes Status: Acute Base Code: [id number] - Comment: 04/20/18 - nursing to encourge ambulation - will initation VTE prophylaxis with Lovenox should he remain admitted after 24 hours (6) DNR (do not resuscitate) Current Visit: Yes Status: Acute Base Code: Z66 - DO NOT RESUSCITATE Comment: 04/19/18 - Hospitalization Course Disposition: Home Health Service Hospital Course: Tom Higginbotham is an 83 y/o male brought to ED after waking up from sleep having difficulty breathing. He was in his usual state of health prior to going to bed the night before, no recent illness, fever, cough, RANDA, chest pain. Denies history of KONG or having a similar episode happen before. Past medical history includes COPD, former smoker, HTN, GERD, peptic ulcer 1963, prostate cancer 2002 s/p seed radiation, chronic low back pain. Of note, he was diagnosed with right upper lobe lung mass evident on chest x-ray beginning and has chosen not to have any further work up. Is waiting for admission to [facility] to live his remaining years. Upon arrival to ED his SPO2 RA 72% and RR 40- at that time he was placed on BiPAP. EKG NSR with LAD and irregular R-R interval, non specific ST-T wav changes, CXR shows masses to RUL and RML, CBC 6.4, Hgb 12.7, Na 130, Cl 85, BUN/ Cr 9/0.6, troponin <0.010. Potassium 40mEq IV initiated in ED for replacement. Soon after application of BiPAP respiratory distress was significantly improved and was transferred to the floor in stable condition, SPO2 92% on room air. 04/19/18: Resting in bed, in no respiratory distress and on room air. He denies any RANDA, chest pain, discomfort. Is reporting diarrhea in which he states he has every day from drinking beer. Son at bedside. Son has been living with him for the past couple weeks preparing for his move into [facility] 04/27/18. He otherwise has been living alone. He has surrendered his drivers license already and is not homebound. Son confirms the recent finding of RUL lung mass in October 2017 in which his Dad has refused any work up or treatment. Is also aware of new finding of RML mass on CXR done in ED. 04/20/18- Hgb 12.7-->9.6. Patient is not interested in any work up for this, understands etiology could include dehydration at time of admit vs. anemia due to lung masses vs. gastrointestinal. Is denying any blood in stools or hemoptysis. Is following up with PCP in am. Family and patient are considering hospice services in the future. Procedures: Imaging and X-Rays 04/19/18 04:59 CHEST 1 VIEW [RAD] Stat Cardiology Procedures 04/19/18 04:59 EKG NOW 04/19/18 06:02 [employer] .Continuous Abnormal Labs: Abnormal Lab Results 04/19/18 04/19/18 04/20/18 Range/Units 05:00 05:00 06:25 RBC 4.31 L 3.32 L (4.40-5.70) M/uL Hgb 12.7 L 9.6 L (14.0-18.0) gm/dl Hct 38.5 L 30.0 L (42.0-52.0) % Lymphocytes % 15.7 L (16-45) % Monocytes % 11.8 H 11.5 H (0-9) % Sodium 130 L (136-145) mmol/L Potassium 3.0 L (3.4-4.5) mmol/L Chloride 85 L (98-107) mmol/L Creatinine 0.6 L (0.7-1.2) mg/dL Calcium 7.6 L (8.8-10.2) mg/dL 04/20/18 Range/Units 06:25 RBC (4.40-5.70) M/uL Hgb (14.0-18.0) gm/dl Hct (42.0-52.0) % Lymphocytes % (16-45) % Monocytes % (0-9) % Sodium 133 L (136-145) mmol/L Potassium 3.3 L (3.4-4.5) mmol/L Chloride 95 L (98-107) mmol/L Creatinine 0.5 L (0.7-1.2) mg/dL Calcium 7.0 L (8.8-10.2) mg/dL Condition at Discharge: (3) Guarded Discharge Medications - Discharge Medications Prescriptions: Fluticasone/Vilanterol 200/25 [Breo Ellipta 200-25 Mcg INH] 1 puff INH DAILY #1 inhaler Ipratropium/Albuterol [Duoneb] 3 ml INH RESP.Q4H PRN #1 box PRN Reason: Wheezing Potassium Chloride [Klor-Con] 10 meq PO BID #60 tablet.sa Prednisone [Prednisone 20Mg] 20 mg PO BID #10 tab Home Medications: Ambulatory Orders Omeprazole 20 mg PO QAM 02/20/14 [Last Taken 03/25/18] Calcium Carbonate/Vitamin D3 [Caltrate 600 Plus D3 Tablet] 1 each PO DAILY 05/23 [Last Taken 03/25/18] Cranberry 500 mg PO DAILY 05/23/16 [Last Taken 03/25/18] Fexofenadine HCl [Camille Allergy] 180 mg PO DAILY 05/23/16 [Last Taken 03/25/18 ] Magnesium Oxide [Magnesium] 400 mg PO DAILY 05/23/16 [Last Taken 03/25/18] Multivit-Min/FA/Lycopen/Lutein [Centrum Silver Men Tablet] 1 each PO DAILY 05/23 [Last Taken 03/25/18] Amlodipine Besylate [Norvasc] 5 mg PO DAILY #30 tab 06/03/16 [Last Taken ] Albuterol Sulfate [Proair Hfa] 2 puff IH QID PRN #1 inhaler 01/11/17 [Last Taken 03/25/18] Fluticasone/Vilanterol 200/25 [Breo Ellipta 200-25 Mcg INH] 1 puff INH DAILY #1 inhaler 04/20/18 [Last Taken Unknown] Ipratropium/Albuterol [Duoneb] 3 ml INH RESP.Q4H PRN #1 box 04/20/18 [Last Taken Unknown] Potassium Chloride [Klor-Con] 10 meq PO BID #60 tablet.sa 04/20/18 [Last Taken Unknown] Prednisone [Prednisone 20Mg] 20 mg PO BID #10 tab 04/20/18 [Last Taken Unknown] Discharge Plan - Discharge Instructions Activity at Discharge: Increase Activity as Tolerated Diet at Discharge: Low Fat, Low Cholesterol, Low Salt Diet Additional Instructions: You have been set up with [facility] for visiting nursing services. They will continue to see you once you move to [facility]. [facility]'s main phone# is [phone]. If you choose to transition onto hospice services, they are able to assist with this. Diet and activity as tolerated. Resume home meds Quality Measures - Quality Measures Quality Measures: Advance Directives, Documentation of Current Medications in Medical Record, Elder Maltreatment Screen and Follow-Up Plan, Screening for High Blood Pressure and F/U Documented - Current Medications Quality Measure: Measure #130: Documentation of Current Medications Documentation of Current Medications: <Current Medications Documented/Reviewed> [[id number]] - Blood Pressure Screening Quality Measure: Screening for High Blood Pressure and Follow-Up Documented Does Patient Have Any of the Following: No Blood Pressure Classification: Hypertensive Reading Systolic Measurement: 152 Diastolic Measurement: 114 Screening for High Blood Pressure: < Pre-Hypertensive BP, F/U Documented > [ [id number]] Pre-Hypertensive Follow-up Interventions: Follow-up with rescreen every year. - Advance Directives Quality Measure: Measure #47: Care Plan Advance Directives Established: No Advance Directives Information Provided To Patient: No Advance Directives on File: No Living Will: No Power of Zipper Slide Attacher: Yes Power of Zipper Slide Attacher Name: tim higginbotham Advance Care Planning: <Care Plan/Decision Maker Documented; Discussed & Documented> [[id number]] - Elder Abuse Suspicion Index Screening: Elder Abuse Suspicion Index Screening Rely on people for bathing, dressing, shopping, banking, etc: Yes Prevented from getting food, clothes, medication, etc: No Made to feel shamed or threatened by someone: No Forced to sign papers or use money against will: No Feel afraid, touched in ways not wanted or hurt physically: No Poor eye contact, withdrawn, malnourished, cuts or bruises: No Screening Result: Negative result EASI Reference Information: Penelope NG, Osvaldo C, Taina D, Porfirio Bo.Development and validation of a tool to assist physicians identification of elder abuse: The Elder Abuse Suspicion Index (EASI ). Journal of Elder Abuse and Neglect, 2008; 20 (3): 276-300. - Elder Maltreatment Screen Quality Measures: Elder Maltreatment Screen and Follow-Up Plan Elder Maltreatment Screen: <Negative, No Follow-Up Plan Required> [[id number]]
[2018-04-21] MEDS ORDERED: PREDNISONE 20 MG TAB PO SCH (08:00)
[2018-04-21] MEDS ORDERED: POTASSIUM CHLORIDE 10 MEQ TAB PO SCH (10:00)
== END 2018-04-20 13:20 | disposition home health service (06) | DRG 190 ==
LOC: ER 04:44 → MEDSURG 05:42
PROVIDERS: ADMIT Internal Medicine; ATTEND Internal Medicine
DX: J44.1 Chronic obstructive pulmonary disease with (acute) exacerbation (principal); J96.91 Respiratory failure, unspecified with hypoxia; R09.02 Hypoxemia; E87.6 Hypokalemia; R91.8 Other nonspecific abnormal finding of lung field; I10 Essential (primary) hypertension; K21.9 Gastro-esophageal reflux disease without esophagitis; Z66 Do not resuscitate; Z87.891 Personal history of nicotine dependence; Z85.46 Personal history of malignant neoplasm of prostate
CPT/HCPCS: 71045; 80048; 80053; 84145; 84484; 85025; 85379; 93005; 93010; 94640; 94660; 94760; 94761; 96365; 96374; 99223; 99239; 99285; 99291; J2930